=== PATIENT | female | born 1990 | race American Indian/Alaskan Native ===

== ENCOUNTER 2020-12-04 05:01 | Emergency (ER) | payer SELFPAY ==
[2020-12-04] MEDS ORDERED: FAMOTIDINE 20 MG TAB PO ONE (09:29)
[2020-12-04] MEDS ORDERED: ACETAMINOPHEN 325 MG TAB PO ONE (09:29)
--- NOTE | 2020-12-04 09:29 | Emergency Department Report ---
ED Abdominal Pain HPI - General Chief Complaint: Abdominal Pain Stated Complaint: ABD PAIN, NAUSEA PUI?: No Time Seen by Provider: 12/04/20 09:20 Source: patient, EMS Mode of arrival: Ambulatory Limitations: No Limitations - History of Present Illness Initial Comments: 30-year-old female presents to the ER via EMS with complaints of upper abdominal pain. Patient states that she has been having upper abdominal pain for 1 month. Patient states that she has been to the ER twice in the past month for same pain. Her visit here today makes the third time coming to the ER for the same pain. She states that she does not have insurance and therefore has not been able to follow-up with a primary care doctor nor her GI specialist. Patient states that when the pain flares up she gets anxious. She denies any nausea or vomiting. She states that she was told that one of her ER visit that she was constipated and was given MiraLAX which she took and after which she had few episodes of diarrhea but this has since resolved. She states that she has had an x-ray of her abdomen in the past, does not recall having a CT of her abdomen. She states that she has been taking Pepto-Bismol for pain which was helping, but she read on the bottle but she can only take it for 2 days. Patient denies any additional symptoms. She denies any abdominal surgeries. She denies alcohol abuse or any illicit drug use. Her last menstrual cycle was November 06, 2020. Complaint: abdominal pain -: month(s) (1) Severity scale (0 -10): 0 - Related Data Previous Rx's Medication Instructions Recorded Last Taken Type Famotidine [Pepcid] 20 mg PO BID #60 tablet 12/04/20 Unknown Rx Pantoprazole [Protonix] 40 mg PO QDAY #30 tablet 12/04/20 Unknown Rx Allergies Allergy/AdvReac Type Severity Reaction Status Date / Time No Known Allergies Allergy Verified 12/04/20 11:44 ED Review of Systems ROS: Stated complaint: ABD PAIN, NAUSEA Other details as noted in HPI Comment: All other systems reviewed and negative Constitutional: denies: chills, fever Eyes: denies: eye pain, eye discharge, vision change ENT: denies: ear pain, throat pain Respiratory: denies: cough, shortness of breath, SOB with exertion, SOB at rest, wheezing Cardiovascular: denies: chest pain, palpitations Gastrointestinal: abdominal pain. denies: nausea, vomiting, diarrhea, hematemesis, melena, hematochezia Genitourinary: denies: urgency, dysuria, frequency, hematuria, discharge, abnormal menses, dyspareunia Musculoskeletal: denies: back pain, joint swelling, arthralgia Skin: denies: rash, lesions Neurological: denies: headache, weakness, numbness, paresthesias, confusion, abnormal gait, vertigo Psychiatric: denies: anxiety, depression, auditory hallucinations, visual hallucinations, homicidal thoughts Hematological/Lymphatic: denies: easy bleeding, easy bruising ED Past Medical Hx - Past Medical History Previous Medical History?: No - Surgical History Past Surgical History?: No - Social History Smoking Status: Current Every Day Smoker Substance Use Type: None - Medications Home Medications: Home Medications Medication Instructions Recorded Confirmed Last Taken Type Famotidine [Pepcid] 20 mg PO BID #60 tablet 12/04/20 Unknown Rx Pantoprazole [Protonix] 40 mg PO QDAY #30 tablet 12/04/20 Unknown Rx ED Physical Exam - General Limitations: No Limitations General appearance: alert, in no apparent distress, other (Patient playing on her phone the entire time I was talking to her.) - Head Head exam: Present: atraumatic, normocephalic, normal inspection - Eye Eye exam: Present: normal appearance, PERRL, EOMI Pupils: Present: normal accommodation - Neck Neck exam: Present: normal inspection, full ROM - Respiratory Respiratory exam: Absent: respiratory distress - Cardiovascular Cardiovascular Exam: Present: regular rate - GI/Abdominal GI/Abdominal exam: Present: soft. Absent: distended, tenderness, guarding, rebound - Neurological Exam Neurological exam: Present: alert, oriented X3, CN II-XII intact, normal gait - Psychiatric Psychiatric exam: Present: normal affect, normal mood - Skin Skin exam: Present: intact ED Course Vital Signs 12/04/20 12/04/20 12/04/20 05:18 05:29 12:09 Temperature 99.2 F 99.1 F 98.4 F Pulse Rate 75 74 94 H Respiratory 18 16 14 Rate Blood Pressure 116/80 137/83 104/70 [Left] O2 Sat by Pulse 100 100 100 Oximetry ED Medical Decision Making - Lab Data Result diagrams: 12/04/20 09:52 12/04/20 09:52 - Medical Decision Making 30-year-old female presents to the ER via EMS with complaints of upper abdominal pain. Patient states that she has been having upper abdominal pain for 1 month. Patient states that she has been to the ER twice in the past month for same pain. Her visit here today makes the third time coming to the ER for the same pain. She states that she does not have insurance and therefore has not been able to follow-up with a primary care doctor nor her GI specialist. Patient states that when the pain flares up she gets anxious. She denies any nausea or vomiting. She states that she was told that one of her ER visit that she was constipated and was given MiraLAX which she took and after which she had few episodes of diarrhea but this has since resolved. She states that she has had an x-ray of her abdomen in the past, does not recall having a CT of her abdomen. She states that she has been taking Pepto-Bismol for pain which was helping, but she read on the bottle but she can only take it for 2 days. Patient denies any additional symptoms. She denies any abdominal surgeries. She denies alcohol abuse or any illicit drug use. Her last menstrual cycle was November 06, 2020. Labs reviewed and unremarkable. Patient currently laying in the bed, playing on her phone and she does not appear to be in any significant distress. She has a soft nontender abdomen. She is not toxic or ill-appearing. No vomiting or diarrhea during stay. At this time there is medication for any imaging/further testing, specialist consult or admission. Patient has been having this pain for a month, and she really needs to follow-up with GI. This is her third ER visit for the same issue that she has been having for the past month. Patient will be given referral to local primary care doctor's office as well as GI for follow-up. In the meantime she will be prescribed Pepcid and Protonix and to take Tylenol as needed for pain. Patient was stable at time of discharge. Critical care attestation.: If time is entered above; I have spent that time in minutes in the direct care of this critically ill patient, excluding procedure time. ED Disposition Clinical Impression: Upper abdominal pain Disposition: HOME / SELF CARE / HOMELESS Is pt being admited?: No Does the pt Need Aspirin: No Condition: Stable Instructions: Abdominal Pain, Adult, [id number], Abdominal Pain (ED) Additional Instructions: I recommend following up with primary care doctor and or GI specialist for you upper abdominal pain. Take the Pepcid and the Protonix as prescribed. You can take Tylenol as needed for pain. Return to the ER if your symptoms changes or worsens in any way. Prescriptions: Famotidine [Pepcid] 20 mg PO BID #60 tablet Pantoprazole [Protonix] 40 mg PO QDAY #30 tablet Referrals: PRIMARY CARE, [Primary Care Provider] - 3-5 Days [facility] [Provider Group] - 3-5 Days [facility] [Provider Group] - 3-5 Days Time of Disposition: 11:56 Print Language: BELGIAN
[2020-12-04 10:41] LABS: Basophils % (Auto) 0.2 % (0.0-1.8); Eosinophils % (Auto) 0.6 % (0.0-4.3); Hematocrit 33.5 % (30.3-42.9); Hemoglobin 11.1 gm/dl (10.1-14.3); Lymphocytes # (Auto) 3.1 K/mm3 (1.2-5.4); Lymphocytes % (Auto) 50.6 % (13.4-35.0); Mean Corpuscular HGB Conc 33 % (30-34); Monocytes # (Auto) 0.3 K/mm3 (0.0-0.8); Monocytes % (Auto) 4.8 % (0.0-7.3); Platelet Count 243 K/mm3 (140-440); Red Blood Count 2.55 M/mm3 (3.65-5.03); Red Cell Distribution Width 15.4 % (13.2-15.2)
[2020-12-04 11:07] LABS: Alanine Aminotransferase 12 units/L (7-56); Albumin 4.6 g/dL (3.9-5); BUN/Creatinine Ratio 35; Blood Urea Nitrogen 14 mg/dL (7-17); Calcium 9.1 mg/dL (8.4-10.2); Hemolysis Index 4
[2020-12-04 11:31] LABS: Mean Corpuscular Volume 131 fl (79-97)
[2020-12-04 11:47] LABS: HCG Qualitative,Urine Negative (Negative)
[2020-12-04] MEDS ORDERED: IBUPROFEN 600 MG TAB PO ONE (12:02)
[2020-12-04 12:10] VITALS: BP 104/70
== END 2020-12-04 12:10 | disposition home or self-care (01) ==
LOC: ED 05:01
DX: R10.10 Upper abdominal pain, unspecified (principal); F17.200 Nicotine dependence, unspecified, uncomplicated
CPT/HCPCS: 36415; 80053; 81025; 83690; 85025; 99283

== ENCOUNTER 2021-03-15 18:52 | Emergency (ER) | payer SELFPAY ==
--- NOTE | 2021-03-15 22:24 | Emergency Department Report ---
ED General Adult HPI - General Chief complaint: Neuro Symptoms/Deficit Stated complaint: EAR,STOMACH PAIN, NO BALANCE Time Seen by Provider: 03/15/21 21:25 Source: patient Mode of arrival: Ambulatory Limitations: Physical Limitation - History of Present Illness Initial comments: 30-year-old -Q[place] female patient presents with complaints of abd ominal pain and generalized weakness. Patient states her symptoms have been ongoing for about 1 year, however her abdominal pain began to worsen over the past few days. She denies any nausea/vomiting/diarrhea, melena/hematochezia, or fever/chills/sweats. She states she has been losing a great deal of weight despite having a normal appetite. No past medical history per patient. She states that she is having difficulty with ambulation and feels like her balance is off. No head injuries, headache, vision changes, or numbness/tingling in her limbs per patient. Patient states she has been seen at multiple ERs for the same symptoms and has not had any imaging performed as of yet. Patient also reports that she has not seen a primary care doctor or any specialist for her symptoms. - Related Data Previous Rx's Medication Instructions Recorded Last Taken Type Famotidine [Pepcid] 20 mg PO BID #60 tablet 12/04/20 Unknown Rx Pantoprazole [Protonix] 40 mg PO QDAY #30 tablet 12/04/20 Unknown Rx predniSONE [Deltasone] 20 mg PO BID 3 Days #6 tab 03/16/21 Unknown Rx Allergies Allergy/AdvReac Type Severity Reaction Status Date / Time No Known Allergies Allergy Verified 12/04/20 11:44 ED Review of Systems ROS: Stated complaint: EAR,STOMACH PAIN, NO BALANCE Other details as noted in HPI Constitutional: weakness. denies: chills, diaphoresis, fever, malaise Respiratory: denies: cough, shortness of breath Cardiovascular: denies: chest pain Gastrointestinal: abdominal pain, other (Blood on tissue with wiping intermittently). denies: nausea, vomiting, diarrhea, constipation, hematochezia Genitourinary: denies: urgency, dysuria, frequency, hematuria, discharge, abnormal menses Musculoskeletal: denies: joint swelling Skin: denies: rash, lesions, change in color Neurological: weakness, abnormal gait. denies: headache, numbness, paresthesias ED Past Medical Hx - Past Medical History Previous Medical History?: No - Surgical History Past Surgical History?: No - Social History Smoking Status: Current Every Day Smoker Substance Use Type: None - Medications Home Medications: Home Medications Medication Instructions Recorded Confirmed Last Taken Type Famotidine [Pepcid] 20 mg PO BID #60 tablet 12/04/20 Unknown Rx Pantoprazole [Protonix] 40 mg PO QDAY #30 tablet 12/04/20 Unknown Rx predniSONE [Deltasone] 20 mg PO BID 3 Days #6 tab 03/16/21 Unknown Rx ED Physical Exam - General Limitations: Physical Limitation General appearance: alert, in no apparent distress - Head Head exam: Present: atraumatic, normocephalic - Eye Eye exam: Present: normal appearance, PERRL. Absent: scleral icterus - Neck Neck exam: Present: normal inspection - Respiratory Respiratory exam: Present: normal lung sounds bilaterally. Absent: respiratory distress - Cardiovascular Cardiovascular Exam: Present: regular rate, normal rhythm. Absent: systolic m urmur, diastolic murmur, rubs, gallop - GI/Abdominal GI/Abdominal exam: Present: soft, tenderness (Mid upper abdomen), normal bowel sounds. Absent: distended, guarding, rebound, rigid - Back Exam Back exam: Present: normal inspection - Neurological Exam Neurological exam: Present: alert, oriented X3, CN II-XII intact. Absent: normal gait (Unbalanced; patient unable to walk for more than 8 steps without having to sit down again) - Expanded Neurological Exam Expanded Speech: Present: fluid speech Cerebellar function: Finger to Nose: Normal, Romberg: Normal Sensory exam: Upper Extremity Light Touch: Normal, Lower Extremity Light Touch: Normal Motor strength exam: RUE: 3, LUE: 3, RLE: 3, LLE: 3 Best Eye Response (Anabel): (4) open spontaneously Best Motor Response (Anabel): (6) obeys commands Best Verbal Response (Anabel): (5) oriented Phillip Total: 15 - Psychiatric Psychiatric exam: Present: normal affect, normal mood - Skin Skin exam: Present: warm, dry, intact, normal color. Absent: rash ED Course Vital Signs 03/15/21 20:56 Temperature 98.6 F Pulse Rate 96 H Respiratory 18 Rate Blood Pressure 94/52 O2 Sat by Pulse 100 Oximetry ED Medical Decision Making - Lab Data Result diagrams: 03/15/21 22:54 03/15/21 22:54 Lab Results 03/15/21 03/15/21 03/15/21 Range/Units 22:54 22:54 22:54 WBC 3.3 L (4.5-11.0) K/mm3 RBC 2.21 L (3.65-5.03) M/mm3 Hgb 8.1 L (10.1-14.3) gm/dl Hct 24.3 L (30.3-42.9) % MCV 110 H (79-97) fl MCH 37 H (28-32) pg MCHC 33 (30-34) % RDW 32.9 H (13.2-15.2) % Plt Count 144 (140-440) K/mm3 Lymph % (Auto) Firer Locomotive Crane Add Manual Diff Complete Total Counted 100 Seg Neuts % (Manual) 35.0 L (40.0-70.0) % Band Neutrophils % 0 % Lymphocytes % (Manual) 65.0 H (13.4-35.0) % Reactive Lymphs % (Man) 0 % Monocytes % (Manual) 0 (0.0-7.3) % Eosinophils % (Manual) 0 (0.0-4.3) % Basophils % (Manual) 0 (0.0-1.8) % Metamyelocytes % 0 % Myelocytes % 0 % Promyelocytes % 0 % Blast Cells % 0 % Nucleated RBC % Not Reportable Seg Neutrophils # Man 1.2 L (1.8-7.7) K/mm3 Band Neutrophils # 0.0 K/mm3 Lymphocytes # (Manual) 2.1 (1.2-5.4) K/mm3 Abs React Lymphs (Man) 0.0 K/mm3 Monocytes # (Manual) 0.0 (0.0-0.8) K/mm3 Eosinophils # (Manual) 0.0 (0.0-0.4) K/mm3 Basophils # (Manual) 0.0 (0.0-0.1) K/mm3 Metamyelocytes # 0.0 K/mm3 Myelocytes # 0.0 K/mm3 Promyelocytes # 0.0 K/mm3 Blast Cells # 0.0 K/mm3 WBC Morphology Not Reportable Hypersegmented Neuts Not Reportable Hyposegmented Neuts Not Reportable Hypogranular Neuts Not Reportable Smudge Cells Not Reportable Toxic Granulation Not Reportable Toxic Vacuolation Not Reportable Dohle Bodies Not Reportable Pelger-Huet Anomaly Not Reportable Celestine Rods Not Reportable Platelet Estimate Consistent w auto Clumped Platelets Not Reportable Plt Clumps, EDTA Not Reportable Large Platelets Not Reportable Giant Platelets Not Reportable Platelet Satelliting Not Reportable Plt Morphology Comment Not Reportable RBC Morphology Not Reportable Dimorphic RBCs Not Reportable Polychromasia Not Reportable Hypochromasia Not Reportable Poikilocytosis Not Reportable Anisocytosis 3+ Microcytosis Not Reportable Macrocytosis 1+ Spherocytes Not Reportable Pappenheimer Bodies Not Reportable Sickle Cells Not Reportable Target Cells Not Reportable Tear Drop Cells Few Ovalocytes Few Helmet Cells Not Reportable Mireles-[place] Bodies Not Reportable [place] Rings Not Reportable Nixon Cells Not Reportable Bite Cells Not Reportable Crenated Cell Not Reportable Elliptocytes Not Reportable Acanthocytes (Spur) Not Reportable Rouleaux Not Reportable Hemoglobin C Crystals Not Reportable Schistocytes Few Malaria parasites Not Reportable Kilo Bodies Not Reportable Hem Pathologist Commnt No Sodium 139 (137-145) mmol/L Potassium 3.9 (3.6-5.0) mmol/L Chloride 103.9 (98-107) mmol/L Carbon Dioxide 21 L (22-30) mmol/L Anion Gap 18 mmol/L BUN 19 H (7-17) mg/dL Creatinine 0.4 L (0.6-1.2) mg/dL Estimated GFR > 60 ml/min BUN/Creatinine Ratio 48 % Glucose 94 (65-100) mg/dL Calcium 9.3 (8.4-10.2) mg/dL Total Bilirubin 1.90 H (0.1-1.2) mg/dL AST 29 (5-40) units/L ALT 27 (7-56) units/L Alkaline Phosphatase 38 (35-129) units/L Total Protein 7.9 (6.3-8.2) g/dL Albumin 4.8 (3.9-5) g/dL Albumin/Globulin Ratio 1.5 % Lipase 46 (13-60) units/L HCG, Qual Negative (Negative) - Radiology Data Radiology results: report reviewed CT ABDOMEN AND PELVIS WITH CONTRAST HISTORY: Pt complains of "Generalized" abdominal pain. COMPARISON: None. TECHNIQUE: CT images of the abdomen and pelvis were obtained following administration of intravenous contrast. All CT scans at this location are performed using CT dose reduction for ALARA by means of automated exposure control. CONTRAST: 100 ml of intravenous contrast administered. FINDINGS: Lungs/bones: Lung bases are clear Abdomen/pelvis: The liver, spleen, adrenal glands, pancreas, gallbladder and upper GI tract appears normal. Kidneys appear normal. No hydronephrosis. Appendix appears normal. No focal inflammatory change in the bowel loops. Small periaortic nodes are seen throughout the abdomen with nodes measuring up to 6 to 7 mm in short axis. No bowel obstruction is seen. Uterus is heterogeneous. Urinary bladder appears normal. Portal vein is patent. IMPRESSION: 1. No acute findings are definitely seen. Few mildly prominent periaortic nod es, nonspecific. CT HEAD WITHOUT CONTRAST INDICATION / CLINICAL INFORMATION: Pt complains of weakness. TECHNIQUE: All CT scans at this location are performed using CT dose reduction for ALARA by means of automated exposure control. COMPARISON: None available. FINDINGS: No acute intracranial hemorrhage. Ventricles are normal in size without midline shift mass effect. Right maxillary sinus disease. There is some subtle areas of low-attenuation in the white matter however nonspecific. ADDITIONAL FINDINGS: None. IMPRESSION: 1. No acute intracranial hemorrhage. Given patient's symptoms if there is concern for acute ischemic change MRI with diffusion is recommended. Nonspecific white matter change in the periventricular and central white matter. - Medical Decision Making 30-year-old -[place] female patient presents with complaints of abdominal pain and generalized weakness. Patient states her symptoms have been ongoing for about 1 year, however her abdominal pain began to worsen over the past few days. She denies any nausea/vomiting/diarrhea, melena/hematochezia, or fever/chills/sweats. She states she has been losing a great deal of weight despite having a normal appetite. No past medical history per patient. She states that she is having difficulty with ambulation and feels like her balance is off. No head injuries, headache, vision changes, or numbness/tingling in her limbs per patient. Patient states she has been seen at multiple ERs for the same symptoms and has not had any imaging performed as of yet. Patient also reports that she has not seen a primary care doctor or any specialist for her symptoms. CT abdomen shows periaortic nodes without other acute abnormalities. CT head shows nonspecific white matter changes. Given chronicity of patient's symptoms, she is stable for follow-up outpatient with neurology. Stressed importance of further examination and likely need of MRI. CBC shows anemia and low white blood cell count. Referrals given. Discussed in detail signs and symptoms that should prompt immediate return to the ED with patient verbalized understanding. Critical care attestation.: If time is entered above; I have spent that time in minutes in the direct care of this critically ill patient, excluding procedure time. ED Disposition Clinical Impression: Generalized weakness, Abnormal gait, Chronic abdominal pain Disposition: 01 HOME / SELF CARE / HOMELESS Is pt being admited?: No Condition: Stable Instructions: Weakness, [id number], Ataxia Prescriptions: predniSONE [Deltasone] 20 mg PO BID 3 Days #6 tab Referrals: [facility] [Provider Group] - 3-5 Days [facility] [Provider Group] - 3-5 Days [facility] [Outside] - 3-5 Days
[2021-03-15] MEDS ORDERED: HYDROcodone/ACETAMINOPHEN 5-325 MG TAB PO ONE (23:04)
[2021-03-15 23:25] LABS: Hematocrit 24.3 % (30.3-42.9); Hemoglobin 8.1 gm/dl (10.1-14.3); Mean Corpuscular HGB Conc 33 % (30-34); Platelet Count 144 K/mm3 (140-440); Red Blood Count 2.21 M/mm3 (3.65-5.03)
[2021-03-15 23:34] LABS: Mean Corpuscular Volume 110 fl (79-97); Red Cell Distribution Width 32.9 % (13.2-15.2)
[2021-03-15 23:47] LABS: Alanine Aminotransferase 27 units/L (7-56); Albumin 4.8 g/dL (3.9-5); Blood Urea Nitrogen 19 mg/dL (7-17); Calcium 9.3 mg/dL (8.4-10.2); Hemolysis Index 6
[2021-03-15 23:54] LABS: BUN/Creatinine Ratio 48
[2021-03-16 00:54] LABS: Anisocytosis 3+; Basophils % (Manual) 0 % (0.0-1.8); Eosinophils % (Manual) 0 % (0.0-4.3); Macrocytosis 1+; Monocytes % (Manual) 0 % (0.0-7.3); Total Cells Counted 100
[2021-03-16 00:56] LABS: Ovalocytes Few; Schistocytes Few; Tear Drop Cells Few
[2021-03-16 00:57] LABS: Platelet Estimate Consistent w Auto
--- NOTE | 2021-03-16 00:57 | Cat Scan Report ---
CT HEAD WITHOUT CONTRAST INDICATION / CLINICAL INFORMATION: Pt complains of weakness. TECHNIQUE: All CT scans at this location are performed using CT dose reduction for ALARA by means of automated e xposure control. COMPARISON: None available. FINDINGS: No acute intracranial hemorrhage. Ventricles are normal in size without midline shift mass effect. Ri ght maxillary sinus disease. There is some subtle areas of low-attenuation in the white matter howeve r nonspecific. ADDITIONAL FINDINGS: None. IMPRESSION: 1. No acute intracranial hemorrhage. Given patient's symptoms if there is concern for acute ischemic change MRI with diffusion is recommended. Nonspecific white matter change in the periventricular and central white matter. Signer Name: Desean Holden MD Signed: 03/16/2021 12:53 AM Workstation Name: [id number]
--- NOTE | 2021-03-16 00:59 | Cat Scan Report ---
CT ABDOMEN AND PELVIS WITH CONTRAST HISTORY: Pt complains of "Generalized" abdominal pain. COMPARISON: None. TECHNIQUE: CT images of the abdomen and pelvis were obtained following administration of intravenous contrast. All CT scans at this location are performed using CT dose reduction for ALARA by means of automated exposure control. CONTRAST: 100 ml of intravenous contrast administered. FINDINGS: Lungs/bones: Lung bases are clear Abdomen/pelvis: The liver, spleen, adrenal glands, pancreas, gallbladder and upper GI tract appears normal. Kidneys appear normal. No hydronephrosis. Appendix appears normal. No focal inflammatory hubbard ge in the bowel loops. Small periaortic nodes are seen throughout the abdomen with nodes measuring up to 6 to 7 mm in short axis. No bowel obstruction is seen. Uterus is heterogeneous. Urinary bladder a ppears normal. Portal vein is patent. IMPRESSION: 1. No acute findings are definitely seen. Few mildly prominent periaortic nodes, nonspecific. Signer Name: Desean Holden MD Signed: 03/16/2021 12:55 AM Workstation Name: [id number]
[2021-03-16] MEDS ORDERED: dexAMETHasone 20 MG/5 ML VIAL IV ONE (01:35)
[2021-03-16 03:03] VITALS: BP 92/59
== END 2021-03-16 03:04 | disposition home or self-care (01) ==
LOC: ED 18:52
DX: R10.9 Unspecified abdominal pain (principal); R26.9 Unspecified abnormalities of gait and mobility; R53.1 Weakness; F17.200 Nicotine dependence, unspecified, uncomplicated
CPT/HCPCS: 36415; 70450; 74177; 80053; 83690; 84703; 85007; 85025; 96374; 99284; J1100; Q9967

== ENCOUNTER 2021-05-05 06:53 | Inpatient (IN) | payer SELFPAY ==
[2021-05-05] MEDS ORDERED: SODIUM CHLORIDE 0.9% 1000 ML 1,000 ML IV ONE (07:40)
[2021-05-05 09:03] LABS: INR 1.27 (0.87-1.13)
[2021-05-05 09:10] LABS: Albumin 4.2 g/dL (3.9-5); Calcium 9.1 mg/dL (8.4-10.2)
[2021-05-05] MEDS ORDERED: ALBUTEROL 2.5 MG/3 ML NEBU IH ONE (09:17)
[2021-05-05] MEDS ORDERED: CALCIUM GLUCONATE 1,000 MG in SODIUM CHLORIDE 0.9% 100 ML IV ONE (09:18)
[2021-05-05] MEDS ORDERED: DEXTROSE 50% IN WATER (25GM) 50 ML VIAL IV ONE (09:18)
[2021-05-05] MEDS ORDERED: SODIUM POLYSTYRENE 15 GM/60 ML ORAL LIQD PO ONE (09:18)
[2021-05-05] MEDS ORDERED: INSULIN REGULAR, HUMAN 100 UNITS/1 ML IV ONE (09:18)
[2021-05-05 09:19] LABS: Hemoglobin 7.3 gm/dl (10.1-14.3); Mean Corpuscular HGB Conc 32 % (30-34); Platelet Count 545 K/mm3 (140-440)
[2021-05-05 09:21] LABS: Mean Corpuscular Volume 121 fl (79-97); Red Cell Distribution Width 20.8 % (13.2-15.2)
[2021-05-05] MEDS ORDERED: DEXTROSE 10% *Hypoglycemia IV PRN (09:23)
[2021-05-05 09:35] LABS: Chol/HDL Ratio 2.97 %
--- NOTE | 2021-05-05 09:42 | Emergency Department Report ---
ED General Adult HPI - General Chief complaint: Extremity Problem,Nontraumatic Stated complaint: SWOLLEN FEET/BACK PAIN Time Seen by Provider: 05/05/21 07:35 Source: patient, EMS Mode of arrival: Stretcher Limitations: No Limitations - History of Present Illness Initial comments: PT ARRIVING FROM HOME- C/O SWOLLEN FEET/BACK PAIN. NONAMBULATORY, INCONTINENT X5 MONTHS. pt was seen multiple times in different ER for the same problem, but never folowed up OP due to insurance problems , denies chets pain or fever -: Gradual, month(s) Location: pelvis Severity scale (0 -10): 0 Worsens with: none Associated Symptoms: loss of appetite, malaise, weakness. denies: denies other symptoms - Related Data Previous Rx's Medication Instructions Recorded Last Taken Type Famotidine [Pepcid] 20 mg PO BID #60 tablet 12/04/20 Unknown Rx Pantoprazole [Protonix] 40 mg PO QDAY #30 tablet 12/04/20 Unknown Rx predniSONE [Deltasone] 20 mg PO BID 3 Days #6 tab 03/16/21 Unknown Rx Allergies Allergy/AdvReac Type Severity Reaction Status Date / Time No Known Allergies Allergy Verified 05/05/21 06:57 ED Review of Systems ROS: Stated complaint: SWOLLEN FEET/BACK PAIN Other details as noted in HPI Comment: All other systems reviewed and negative ED Past Medical Hx - Past Medical History Previous Medical History?: No - Social History Smoking Status: Current Every Day Smoker Substance Use Type: None - Medications Home Medications: Home Medications Medication Instructions Recorded Confirmed Last Taken Type Famotidine [Pepcid] 20 mg PO BID #60 tablet 12/04/20 Unknown Rx Pantoprazole [Protonix] 40 mg PO QDAY #30 tablet 12/04/20 Unknown Rx predniSONE [Deltasone] 20 mg PO BID 3 Days #6 tab 03/16/21 Unknown Rx ED Physical Exam - General Limitations: No Limitations General appearance: alert, in distress, cachectic - Head Head exam: Present: atraumatic, normocephalic - Eye Eye exam: Present: normal appearance - ENT ENT exam: Present: mucous membranes dry - Neck Neck exam: Present: normal inspection - Respiratory Respiratory exam: Present: rales. Absent: respiratory distress - Cardiovascular Cardiovascular Exam: Present: regular rate, normal rhythm. Absent: systolic murmur, diastolic murmur, rubs, gallop - GI/Abdominal GI/Abdominal exam: Present: soft, normal bowel sounds - Extremities Exam Extremities exam: Present: pedal edema - Back Exam Back exam: Present: normal inspection - Neurological Exam Neurological exam: Present: alert, oriented X3 - Psychiatric Psychiatric exam: Present: normal affect, normal mood - Skin Skin exam: Present: warm, dry, intact, normal color. Absent: rash ED Course Vital Signs 05/05/21 05/05/21 05/05/21 06:54 07:37 07:41 Temperature 98 F Pulse Rate 86 105 H 100 H Respiratory 20 14 17 Rate Blood Pressure 135/87 Blood Pressure 130/80 135/87 [Left] O2 Sat by Pulse 98 100 100 Oximetry 05/05/21 05/05/21 07:45 08:01 Temperature Pulse Rate 103 H 104 H Respiratory 14 14 Rate Blood Pressure 135/87 130/92 Blood Pressure [Left] O2 Sat by Pulse 100 81 L Oximetry ED Medical Decision Making - Lab Data Result diagrams: 05/05/21 07:44 05/05/21 07:44 - EKG Data -: EKG Interpreted by Me EKG shows normal: sinus rhythm Rate: normal - EKG Data When compared to previous EKG there are: no significant change Interpretation: no acute changes - Medical Decision Making work up showed hyperkalemia , ARF spoke clementina warner, he will see her shortly , will start hyperkalemia protocol and admit to ICU Critical Care Time: Yes Critical care time in (mins) excluding proc time.: 55 Critical care attestation.: If time is entered above; I have spent that time in minutes in the direct care of this critically ill patient, excluding procedure time. Critical Care Time: 65 ED Disposition Clinical Impression: Weakness, Incontinence, ARF (acute renal failure), Hyperkalemia, Acidosis, Anemia Disposition: ADMITTED INPATIENT Is pt being admited?: Yes Does the pt Need Aspirin: No Condition: Critical Referrals: PRIMARY CARE, [Primary Care Provider] - 3-5 Days
[2021-05-05 09:54] LABS: Anisocytosis 1+; Basophils % (Manual) 0 % (0.0-1.8); Macrocytosis 2+; Total Cells Counted 100
[2021-05-05 09:55] LABS: Platelet Estimate Consistent w Auto; Toxic Granulation 3+
[2021-05-05] MEDS ORDERED: SODIUM BICARBONATE 50 MEQ in SODIUM CHLORIDE 0.9% 1000 ML 1,000 ML IV SCH (10:00)
[2021-05-05] MEDS ORDERED: CALC GLUCONATE 1GM/NS 100 ML 1 GM/100 ML BAG IV NR (10:00)
[2021-05-05] MEDS ORDERED: DEXTROSE 50% IN WATER (25GM) 50 ML SYRINGE IV ONE (10:02)
[2021-05-05] MEDS ORDERED: LIP THERAPY VASELINE TP PRN (10:21)
[2021-05-05] MEDS ORDERED: MORPHINE 4 MG/1 ML INJ IV PRN (10:59)
[2021-05-05] MEDS ORDERED: SODIUM CHLORIDE 0.9% 1000 ML 1,000 ML IV SCH (11:00)
--- NOTE | 2021-05-05 11:12 | Consultation ---
History of Present Illness - Reason for Consult Consult date: 05/05/21 acute renal failure, hyperkalemia, metabolic acidosis - History of Present Illness The patient is a 30 YO female with history notable for bedbound status and double incontinence who presented to [facility] ED 05/05 with c/o bilateral lower extremity swelling, abdominal discomfort, back pain and generalized weakness for the past several months. Most of the history provided by mother and sister at the bedside. Per mother patient developed weakness several months ago which gotten progressively worse, now patient cant move her legs and bedbound for the past 3 months. Patient also incontinent of urine and stool. Patient also reportedly has poor urine output for the past few days. Also patient has not been eating or drinking well for few weeks now. Patient has had multiple ER visits at various hospitals including a previous ER visit here with similar complaints back in February with CT scan of the abdomen and pelvis that was found to be negative. Patient is also had ER visits at [facility] and [facility] with similar complaints. No reports of any hospitalization. Her last creatinine reported here on her ER visit in February was 0.4. Patient also c/o some sob. Denies N, V, D, fever, chills, rash, dizziness, syncope, cp, hematuria or blurry vision. Labs notable for Cr eat 10.3, BUN 155, Sodium 126, K 6.9, bicarb 12, Hb 7.3 and Ck 329. Imaging reviewed. Nephrology was consulted for further evaluation of MAT, hyperkalemia and metabolic acidosis. Medications and Allergies Allergies Allergy/AdvReac Type Severity Reaction Status Date / Time No Known Allergies Allergy Verified 05/05/21 06:57 Home Medications Medication Instructions Recorded Confirmed Last Taken Type Famotidine [Pepcid] 20 mg PO BID #60 tablet 12/04/20 05/05/21 Unknown Rx Pantoprazole [Protonix] 40 mg PO QDAY #30 tablet 12/04/20 05/05/21 Unknown Rx predniSONE [Deltasone] 20 mg PO BID 3 Days #6 tab 03/16/21 05/05/21 Unknown Rx Active Meds: Active Medications Acetaminophen (Acetaminophen 325 Mg Tab) 650 mg PO Q4H PRN PRN Reason: Pain MILD(1-3)/Fever >100.5/GILLETTE Dextrose (Dextrose 10% *Hypoglycemia) 0 ml IV PRN PRN PRN Reason: Hypoglycemia Heparin Sodium (Porcine) (Heparin 5,000 Unit/1 Ml Vial) 5,000 unit SUB-Q Q12HR [facility] Sodium Bicarbonate 50 meq/ (Sodium Chloride) 1,050 mls @ 100 mls/hr IV DIRECT [facility] Last Admin: 05/05/21 10:13 Dose: 100 mls/hr Morphine Sulfate (Morphine 4 Mg/1 Ml Inj) 1 mg IV Q4H PRN PRN Reason: Pain , Severe (7-10) Ondansetron HCl (Ondansetron 4 Mg/2 Ml Inj) 4 mg IV Q8H PRN PRN Reason: Nausea And Vomiting Oxycodone/Acetaminophen (Oxycodone /Acetaminophen 5-325mg Tab) 1 tab PO Q6H PRN PRN Reason: Pain, Moderate (4-6) Sodium Chloride (Sodium Chloride 0.9% 10 Ml Flush Syringe) 10 ml IV BID [facility] Sodium Chloride (Sodium Chloride 0.9% 10 Ml Flush Syringe) 10 ml IV PRN PRN PRN Reason: LINE FLUSH Review of Systems ROS unobtainable: due to mental status All systems: negative Exam - Vital Signs Vital signs: Vital Signs Temp Pulse Resp BP Pulse Ox 98 F 86 20 130/80 98 05/05/21 06:54 05/05/21 06:54 05/05/21 06:54 05/05/21 06:54 05/05/21 06:54 Results - Lab Results 05/05/21 07:44 05/05/21 16:07 Most recent lab results Calcium 9.1 mg/dL (8.4-10.2) 05/05/21 07:44 Assessment and Plan 1. Acute kidney injury: MAT in the setting of bladder obstruction and volume depletion. Renal US finding noted. Urine studies ordered. Continue IV fluids. Monitor renal function. Renal prognosis is guarded. Avoid nephrotoxic agents. Meds dosage based on GFR. Monitor for INSURANCE OFFICE MANAGER needs. Patient and family was explained that she may need dialysis. 2. FEN: Hyperkalemia, meds ordered, monitor. Anion-gap Metabolic acidosis, 2/2 MAT, bicarb drip, monitor. Hyponatremia, monitor. Monitor lytes and volume status. 3. LE weakness: Functional paraplegia. MRI lumbar spine. Monitor. 4. Macrocytic anemia, POA: Monitor. 5. Anorexia. Subjective: Patient was seen and examined at the bedside. Examination: General appearance: well-developed, appears stated age, no distress HEENT: atraumatic, MARY Neck: trachea midline Respiratory: ctab Heart: S1S2, regular, no murmur Abdomen: soft, bowel sounds heard, distended bladder noted Integumentary: no obvious rash Neurologic: somnolent, able to move UE, not able to move LEs Ext: no edema
--- NOTE | 2021-05-05 11:26 | History and Physical Report ---
History of Present Illness Date of examination: 05/05/21 Date of admission: 05/05/2021 Chief complaint: Generalized weakness, lower extremity swelling History of present illness: This is a 30-year-old female who presents to the emergency department with complaints of bilateral lower extremity swelling, vague abdominal and back pain and generalized weakness. Patient also reportedly has had poor urine output. Patient is accompanied by her mother who is at the bedside. She reportedly has been incontinent for 5 months. Patient has had multiple ER visits at various hospitals including a previous ER visit here with similar complaints back in February with CT scan of the abdomen and pelvis that was found to be negative. Patient is also had ER visits at [facility] and [place] with similar complaints. No reports of any hospitalization her last creatinine reported here on her ER visit in February was 0.4. Patient denies any chest pain but does complain of some mild shortness of breath. Patient is somewhat somnolent and lethargic throughout the interview. All the history was essentially obtain from the mother. Past History Past Medical History: No medical history Past Surgical History: No surgical history Social history: no significant social history Family history: no significant family history Medications and Allergies Allergies Allergy/AdvReac Type Severity Reaction Status Date / Time No Known Allergies Allergy Verified 05/05/21 06:57 Home Medications Medication Instructions Recorded Confirmed Last Taken Type Famotidine [Pepcid] 20 mg PO BID #60 tablet 12/04/20 Unknown Rx Pantoprazole [Protonix] 40 mg PO QDAY #30 tablet 12/04/20 Unknown Rx predniSONE [Deltasone] 20 mg PO BID 3 Days #6 tab 03/16/21 Unknown Rx Active Meds: Active Medications Acetaminophen (Acetaminophen 325 Mg Tab) 650 mg PO Q4H PRN PRN Reason: Pain MILD(1-3)/Fever >100.5/GILLETTE Dextrose (Dextrose 10% *Hypoglycemia) 0 ml IV PRN PRN PRN Reason: Hypoglycemia Heparin Sodium (Porcine) (Heparin 5,000 Unit/1 Ml Vial) 5,000 unit SUB-Q Q12HR [facility] Sodium Bicarbonate 50 meq/ (Sodium Chloride) 1,050 mls @ 100 mls/hr IV DIRECT [facility] Last Admin: 05/05/21 10:13 Dose: 100 mls/hr Morphine Sulfate (Morphine 2 Mg/1 Ml Inj) 1 mg IV Q4H PRN PRN Reason: Pain , Severe (7-10) Ondansetron HCl (Ondansetron 4 Mg/2 Ml Inj) 4 mg IV Q8H PRN PRN Reason: Nausea And Vomiting Oxycodone/Acetaminophen (Oxycodone /Acetaminophen 5-325mg Tab) 1 tab PO Q6H PRN PRN Reason: Pain, Moderate (4-6) Sodium Chloride (Sodium Chloride 0.9% 10 Ml Flush Syringe) 10 ml IV BID [facility] Sodium Chloride (Sodium Chloride 0.9% 10 Ml Flush Syringe) 10 ml IV PRN PRN PRN Reason: LINE FLUSH Review of Systems All systems: negative Exam - Constitutional Vitals: Temp Pulse Resp BP Pulse Ox 98 F 99 H 16 130/92 93 05/05/21 06:54 05/05/21 09:35 05/05/21 09:35 05/05/21 08:01 05/05/21 09:42 General appearance: Present: no acute distress, well-nourished - EENT Eyes: Present: PERRL ENT: hearing intact, clear oral mucosa - Neck Neck: Present: supple, normal ROM - Respiratory Respiratory effort: normal Respiratory: bilateral: CTA - Cardiovascular Heart Sounds: Present: S1 & S2. Absent: rub, click - Extremities Extremities: pulses symmetrical, No edema Peripheral Pulses: within normal limits - Abdominal General gastrointestinal: Present: soft, non-tender, non-distended, normal bowel sounds Female genitourinary: Present: normal - Integumentary Integumentary: Present: clear, warm, dry - Musculoskeletal Musculoskeletal: gait normal, strength equal bilaterally - Psychiatric Psychiatric: appropriate mood/affect, intact judgment & insight - Neurologic Neurologic: CNII-XII intact, moves all extremities HEART Score - HEART Score Troponin: Troponin T 0.038 ng/mL (0.00-0.029) H 05/05/21 07:44 Results - Labs CBC & Chem 7: 05/05/21 07:44 05/05/21 07:44 Labs: Laboratory Last Values WBC 11.4 K/mm3 (4.5-11.0) H 05/05/21 07:44 RBC 1.90 M/mm3 (3.65-5.03) L 05/05/21 07:44 Hgb 7.3 gm/dl (10.1-14.3) L 05/05/21 07:44 Hct 23.0 % (30.3-42.9) L 05/05/21 07:44 MCV 121 fl (79-97) H 05/05/21 07:44 MCH 38 pg (28-32) H 05/05/21 07:44 MCHC 32 % (30-34) 05/05/21 07:44 RDW 20.8 % (13.2-15.2) H 05/05/21 07:44 Plt Count 545 K/mm3 (140-440) H 05/05/21 07:44 Add Manual Diff Complete 05/05/21 07:44 Total Counted 100 05/05/21 07:44 Seg Neuts % (Manual) 77.0 % (40.0-70.0) H 05/05/21 07:44 Band Neutrophils % 0 % 05/05/21 07:44 Lymphocytes % (Manual) 16.0 % (13.4-35.0) 05/05/21 07:44 Reactive Lymphs % (Man) 0 % 05/05/21 07:44 Monocytes % (Manual) 6.0 % (0.0-7.3) 05/05/21 07:44 Eosinophils % (Manual) 1.0 % (0.0-4.3) 05/05/21 07:44 Basophils % (Manual) 0 % (0.0-1.8) 05/05/21 07:44 Metamyelocytes % 0 % 05/05/21 07:44 Myelocytes % 0 % 05/05/21 07:44 Promyelocytes % 0 % 05/05/21 07:44 Blast Cells % 0 % 05/05/21 07:44 Nucleated RBC % Not Reportable 05/05/21 07:44 Seg Neutrophils # Man 8.8 K/mm3 (1.8-7.7) H 05/05/21 07:44 Band Neutrophils # 0.0 K/mm3 05/05/21 07:44 Lymphocytes # (Manual) 1.8 K/mm3 (1.2-5.4) 05/05/21 07:44 Abs React Lymphs (Man) 0.0 K/mm3 05/05/21 07:44 Monocytes # (Manual) 0.7 K/mm3 (0.0-0.8) 05/05/21 07:44 Eosinophils # (Manual) 0.1 K/mm3 (0.0-0.4) 05/05/21 07:44 Basophils # (Manual) 0.0 K/mm3 (0.0-0.1) 05/05/21 07:44 Metamyelocytes # 0.0 K/mm3 05/05/21 07:44 Myelocytes # 0.0 K/mm3 05/05/21 07:44 Promyelocytes # 0.0 K/mm3 05/05/21 07:44 Blast Cells # 0.0 K/mm3 05/05/21 07:44 WBC Morphology Not Reportable 05/05/21 07:44 Hypersegmented Neuts Not Reportable 05/05/21 07:44 Hyposegmented Neuts Not Reportable 05/05/21 07:44 Hypogranular Neuts Not Reportable 05/05/21 07:44 Smudge Cells Not Reportable 05/05/21 07:44 Toxic Granulation 3+ 05/05/21 07:44 Toxic Vacuolation Not Reportable 05/05/21 07:44 Dohle Bodies Not Reportable 05/05/21 07:44 Pelger-Huet Anomaly Not Reportable 05/05/21 07:44 Celestine Rods Not Reportable 05/05/21 07:44 Platelet Estimate Consistent w auto 05/05/21 07:44 Clumped Platelets Not Reportable 05/05/21 07:44 Plt Clumps, EDTA Not Reportable 05/05/21 07:44 Large Platelets Not Reportable 05/05/21 07:44 Giant Platelets Not Reportable 05/05/21 07:44 Platelet Satelliting Not Reportable 05/05/21 07:44 Plt Morphology Comment Not Reportable 05/05/21 07:44 RBC Morphology Not Reportable 05/05/21 07:44 Dimorphic RBCs Not Reportable 05/05/21 07:44 Polychromasia Not Reportable 05/05/21 07:44 Hypochromasia Not Reportable 05/05/21 07:44 Poikilocytosis Not Reportable 05/05/21 07:44 Anisocytosis 1+ 05/05/21 07:44 Microcytosis Not Reportable 05/05/21 07:44 Macrocytosis 2+ 05/05/21 07:44 Spherocytes Not Reportable 05/05/21 07:44 Pappenheimer Bodies Not Reportable 05/05/21 07:44 Sickle Cells Not Reportable 05/05/21 07:44 Target Cells Not Reportable 05/05/21 07:44 Tear Drop Cells Not Reportable 05/05/21 07:44 Ovalocytes Not Reportable 05/05/21 07:44 Helmet Cells Not Reportable 05/05/21 07:44 Mireles-Rosman Bodies Not Reportable 05/05/21 07:44 Burns Rings Not Reportable 05/05/21 07:44 Moy Cells Not Reportable 05/05/21 07:44 Bite Cells Not Reportable 05/05/21 07:44 Crenated Cell Not Reportable 05/05/21 07:44 Elliptocytes Not Reportable 05/05/21 07:44 Acanthocytes (Spur) Not Reportable 05/05/21 07:44 Rouleaux Not Reportable 05/05/21 07:44 Hemoglobin C Crystals Not Reportable 05/05/21 07:44 Schistocytes Not Reportable 05/05/21 07:44 Malaria parasites Not Reportable 05/05/21 07:44 Kilo Bodies Not Reportable 05/05/21 07:44 Hem Pathologist Commnt No 05/05/21 07:44 PT 17.4 Sec. (12.2-14.9) H 05/05/21 07:44 INR 1.27 (0.87-1.13) H 05/05/21 07:44 Sodium 126 mmol/L (137-145) L 05/05/21 07:44 Potassium 6.9 mmol/L (3.6-5.0) H* 05/05/21 07:44 Chloride 85.6 mmol/L (98-107) L 05/05/21 07:44 Carbon Dioxide 12 mmol/L (22-30) L 05/05/21 07:44 Anion Gap 35 mmol/L 05/05/21 07:44 BUN 155 mg/dL (7-17) H 05/05/21 07:44 Creatinine 10.3 mg/dL (0.6-1.2) H 05/05/21 07:44 Estimated GFR 5 ml/min 05/05/21 07:44 BUN/Creatinine Ratio 15 % 05/05/21 07:44 Glucose 84 mg/dL (65-100) 05/05/21 07:44 Lactic Acid 1.10 mmol/L (0.7-2.0) 05/05/21 07:44 Calcium 9.1 mg/dL (8.4-10.2) 05/05/21 07:44 Total Bilirubin 0.30 mg/dL (0.1-1.2) 05/05/21 07:44 AST 35 units/L (5-40) 05/05/21 07:44 ALT 14 units/L (7-56) 05/05/21 07:44 Alkaline Phosphatase 72 units/L (35-129) 05/05/21 07:44 Total Creatine Kinase 329 units/L (30-135) H 05/05/21 07:44 Troponin T 0.038 ng/mL (0.00-0.029) H 05/05/21 07:44 Total Protein 8.8 g/dL (6.3-8.2) H 05/05/21 07:44 Albumin 4.2 g/dL (3.9-5) 05/05/21 07:44 Albumin/Globulin Ratio 0.9 % 05/05/21 07:44 Triglycerides 97 mg/dL (2-149) 05/05/21 07:44 Cholesterol 110 mg/dL (50-199) 05/05/21 07:44 LDL Cholesterol Direct 64 mg/dL (50-130) 05/05/21 07:44 HDL Cholesterol 37 mg/dL (40-59) L 05/05/21 07:44 Cholesterol/HDL Ratio 2.97 % 05/05/21 07:44 TSH 2.510 mlU/mL (0.270-4.200) 05/05/21 07:44 Plasma/Serum Alcohol < 0.01 % (0-0.07) 05/05/21 07:44 Assessment and Plan Assessment and plan: Acute renal failure. Severe hyperkalemia Hyponatremia Generalized weakness and debility. paraplegia 05/05/2021. Hyperkalemia protocol has been initiated in the emergency department. The patient received insulin/glucose, calcium gluconate and Kayexalate. Nephrology has been consulted and I discussed the case with Dr. Dillrad. Patient may need to undergo emergent hemodialysis. Bilateral renal ultrasound ordered to rule out obstructive etiology. Follow-up electrolytes. Follow-up serologies for glomerulonephritis work-upcomplements C3-C4, J LUIS, etc. 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 We will consult Neurology and obtain a MRI of lumbar spine
[2021-05-05] MEDS ORDERED: ACETAMINOPHEN 325 MG TAB PO PRN (11:30)
[2021-05-05] MEDS ORDERED: MORPHINE 2 MG/1 ML INJ IV PRN (12:00)
[2021-05-05] MEDS ORDERED: ONDANSETRON 4 MG/2 ML INJ IV PRN (12:00)
[2021-05-05 12:25] LABS: HCG Qualitative,Urine Negative (Negative)
[2021-05-05 12:31] LABS: Bacteria,Urine 1+ /HPF (Negative); Bilirubin,Urine NEG (Negative); Blood,Urine SM (Negative); Color,Urine Yellow (Yellow); Mucus,Urine FEW /HPF; Protein,Urine <15 mg/dL mg/dL (Negative); Urobilinogen,Urine < 2.0 mg/dL (<2.0)
[2021-05-05 12:44] LABS: Amphetamine Screen,Urine PRESUMPTIVE NEGATIVE; Benzodiazepines Screen,Urine PRESUMPTIVE NEGATIVE; Cannabinoid Screen,Urine PRESUMPTIVE NEGATIVE; Cocaine Screen,Urine PRESUMPTIVE NEGATIVE; Methadone Screen,Urine PRESUMPTIVE NEGATIVE; Opiate Screen,Urine PRESUMPTIVE NEGATIVE
[2021-05-05 12:48] LABS: Creatinine,Urine 70.6 mg/dL (0.1-20.0); Protein/Creatinine Ratio,Urine 0.23
--- NOTE | 2021-05-05 12:55 | XRay Report ---
CHEST 1 VIEW INDICATION: Dyspnea. COMPARISON: None FINDINGS: Support devices: None. Heart: Within normal limits. Lungs/Pleura: No acute air space or interstitial disease. Additional findings: None. IMPRESSION: No acute findings. Signer Name: Aime Iqbal Jr, MD Signed: 05/05/2021 12:50 PM Workstation Name: [id number]
--- NOTE | 2021-05-05 14:00 | Ultrasound Report ---
ULTRASOUND RENAL INDICATION / CLINICAL INFORMATION: ARF. COMPARISON: CT dated 03/16/2021 FINDINGS: RIGHT KIDNEY: Size (in cm): 11.2 - Echogenicity: Normal. - Parenchymal Thickness: Normal. - Hydronephrosis: Mild right pelviectasis without munir hydronephrosis. - Cyst or mass: No significant abnormality. - Stones: None seen. LEFT KIDNEY: Size (in cm): 12.4 - Echogenicity: Normal. - Parenchymal Thickness: Normal. - Hydronephrosis: Mild pelviectasis without munir hydronephrosis. - Cyst or mass: No significant abnormality. - Stones: None seen. URINARY BLADDER: Mishra catheter is present within the bladder. The catheter was clamped to better ass ess the bladder. No significant bladder wall thickening. Mild echoes layering along the posterior isidro dder. FREE FLUID: None. ADDITIONAL FINDINGS: None. IMPRESSION: 1. Nonspecific mild bilateral pelviectasis without munir hydronephrosis. No other significant abnorm ality of the kidneys. 2. Mild echoes layering along the posterior bladder, may reflect proteinaceous or hemorrhagic debris . No significant bladder wall thickening. Signer Name: Tirso Islas MD Signed: 05/05/2021 1:55 PM Workstation Name: [id number]
--- NOTE | 2021-05-05 15:48 | Magnetic Resonance Report ---
MRI LUMBAR SPINE 05/05/2021 INDICATION / CLINICAL INFORMATION: functional paraplegia, BILAT LEG WEAKNESS AND PAIN. COMPARISON: None available. FINDINGS: GENERAL OBSERVATIONS: Unenhanced MR images of the lumbar spine were obtained. Moderate patient motion artifact is present on these images. There is no evidence of abnormality. Vertebral body height and alignment is well preserved. Disc profiles are normal at all levels. There is no evidence of stenosis or nerve root compression. BONE MARROW: Normal SPINAL CORD/CAUDA EQUINA: Normal PARASPINAL SOFT TISSUES: No significant abnormality. IMPRESSION: Negative unenhanced MRI of the lumbar spine. Signer Name: Daniel Person MD Signed: 05/05/2021 3:40 PM Workstation Name: [id number]
[2021-05-05 16:42] LABS: Calcium 8.5 mg/dL (8.4-10.2)
[2021-05-05] MEDS ORDERED: SODIUM BICARB 8.4% 50 MEQ/50 ML SYRINGE IV ONE (17:00)
[2021-05-05] MEDS: SODIUM BICARBONATE 150 MEQ in DEXTROSE 5% IN WATER 1,000 ML IV SCH (18:13)
[2021-05-05] MEDS: HEPARIN 5,000 UNIT/1 ML VIAL SUB-Q SCH (21:52)
[2021-05-06] MEDS: SODIUM BICARBONATE 150 MEQ in DEXTROSE 5% IN WATER 1,000 ML IV SCH (03:47)
[2021-05-06 05:28] LABS: Mean Corpuscular HGB Conc 33 % (30-34); Platelet Count 500 K/mm3 (140-440); Red Blood Count 1.51 M/mm3 (3.65-5.03)
[2021-05-06 05:44] LABS: Calcium 8.5 mg/dL (8.4-10.2)
[2021-05-06 06:23] LABS: Mean Corpuscular Volume 118 fl (79-97); Red Cell Distribution Width 20.8 % (13.2-15.2)
[2021-05-06 06:24] LABS: Hemoglobin 5.8 gm/dl (10.1-14.3)
[2021-05-06 06:25] LABS: Hematocrit 18.3 % (30.3-42.9)
[2021-05-06] MEDS: oxyCODONE /ACETAMINOPHEN 5-325MG TAB PO PRN ×2 (06:25→21:35)
[2021-05-06 07:06] LABS: Basophils % (Manual) 0 % (0.0-1.8); Eosinophils % (Manual) 0 % (0.0-4.3); Total Cells Counted 100
[2021-05-06 07:07] LABS: Anisocytosis 1+; Macrocytosis 1+; Poikilocytosis 1+; Tear Drop Cells Few
[2021-05-06 07:08] LABS: Platelet Estimate Consistent w Auto; Toxic Granulation 1+
[2021-05-06] MEDS ORDERED: SODIUM CHLORIDE 0.9% 500 ML 500 ML IV NR (07:30)
[2021-05-06] MEDS ORDERED: POTASSIUM CHLORIDE ER 20 MEQ TAB PO NR (07:36)
--- NOTE | 2021-05-06 10:07 | Progress Note ---
Assessment and Plan 1. Acute kidney injury: MAT in the setting of bladder obstruction and volume depletion. Renal US finding noted. Continue IV fluids. Monitor renal function. Creatinine level improving. Avoid nephrotoxic agents. Meds dosage based on GFR. 2. FEN: Hypokalemia, replete K, monitor. Anion-gap Metabolic acidosis, 2/2 MAT, improved, monitor. Hyponatremia, improved, monitor. Monitor lytes and volume status. 3. LE weakness: Functional paraplegia. MRI lumbar spine negative. Neuro consult. Monitor. 4. Bladder retention: S/p sotelo catheter. 5. Macrocytic anemia, POA: PRBC today. Monitor. 6. Anorexia. Subjective: Patient was seen and examined at the bedside. Staff at the bedside. Examination: General appearance: well-developed, appears stated age, no distress HEENT: atraumatic, MARY Neck: trachea midline Respiratory: ctab Heart: S1S2, regular, no murmur Abdomen: soft, bowel sounds heard, distended bladder noted Integumentary: no obvious rash Neurologic: somnolent, able to move UE, not able to move LEs Ext: no edema : Sotelo catheter Subjective Date of service: 05/06/21 Objective - Vital Signs Vital signs: Vital Signs - 12hr 05/05/21 05/06/21 05/06/21 23:17 01:25 03:05 Temperature 98.1 F 97.8 F Pulse Rate 104 H 102 H Respiratory 18 18 Rate Blood Pressure 108/57 120/64 O2 Sat by Pulse 100 100 97 Oximetry 05/06/21 07:57 Temperature 97.5 F L Pulse Rate 101 H Respiratory 16 Rate Blood Pressure 100/55 O2 Sat by Pulse 100 Oximetry - Lab 05/06/21 04:12 05/06/21 21:15 Most recent lab results Calcium 8.5 mg/dL (8.4-10.2) 05/06/21 04:12 Urine Creatinine 70.6 mg/dL (0.1-20.0) H 05/05/21 12:10 Urine Sodium 18 mmol/L 05/05/21 12:10 Urine Total Protein 16 mg/dL (5-11.8) H 05/05/21 12:10 Medications & Allergies - Medications Allergies/Adverse Reactions: Allergies No Known Allergies Allergy (Verified 05/05/21 06:57) Home Medications: Home Medications Medication Instructions Recorded Confirmed Last Taken Type Famotidine [Pepcid] 20 mg PO BID #60 tablet 12/04/20 05/05/21 Unknown Rx Pantoprazole [Protonix] 40 mg PO QDAY #30 tablet 12/04/20 05/05/21 Unknown Rx predniSONE [Deltasone] 20 mg PO BID 3 Days #6 tab 03/16/21 05/05/21 Unknown Rx Active Medications: Generic Name Dose Route Start Last Admin Trade Name Lay PRN Reason Stop Dose Admin Acetaminophen 650 mg 05/05/21 11:30 Acetaminophen 325 Mg Tab PO Q4H PRN Pain MILD(1-3)/Fever >100.5/GILLETTE Dextrose 0 ml 05/05/21 09:23 Dextrose 10% *Hypoglycemia IV PRN PRN Hypoglycemia Heparin Sodium (Porcine) 5,000 unit 05/05/21 22:00 05/05/21 21:52 Heparin 5,000 Unit/1 Ml Vial SUB-Q 5,000 unit Q12HR RIRI Administration Sodium Chloride 500 mls @ 0 mls/hr 05/06/21 07:30 Nacl 0.9% 500 Ml IV 05/06/21 18:00 ONCE NR As Directed Sodium Chloride 1,000 mls @ 75 mls/hr 05/06/21 08:00 Nacl 0.45% 1000 Ml IV DIRECT RIRI Morphine Sulfate 1 mg 05/05/21 12:00 Morphine 2 Mg/1 Ml Inj IV Q4H PRN Pain , Severe (7-10) Ondansetron HCl 4 mg 05/05/21 12:00 Ondansetron 4 Mg/2 Ml Inj IV Q8H PRN Nausea And Vomiting Oxycodone/Acetaminophen 1 tab 05/05/21 12:00 05/06/21 06:25 Oxycodone /Acetaminophen 5-325mg Tab PO 1 tab Q6H PRN Administration Pain, Moderate (4-6) Potassium Chloride 40 meq 05/06/21 07:36 Potassium Chloride Er 20 Meq Tab PO 05/06/21 12:00 ONCE NR Sodium Chloride 10 ml 05/05/21 22:00 05/05/21 21:53 Sodium Chloride 0.9% 10 Ml Flush Syringe IV 10 ml BID RIRI Administration Sodium Chloride 10 ml 05/05/21 12:00 Sodium Chloride 0.9% 10 Ml Flush Syringe IV PRN PRN LINE FLUSH
--- NOTE | 2021-05-06 10:59 | Progress Note ---
Assessment and Plan Assessment and plan: Acute renal failure. Severe hyperkalemia Hyponatremia Generalized weakness and debility. paraplegia 05/05/2021. Hyperkalemia protocol has been initiated in the emergency department. The patient received insulin/glucose, calcium gluconate and Kayexalate. Nephrology has been consulted and I discussed the case with Dr. Dillard. Patient may need to undergo emergent hemodialysis. Bilateral renal ul trasound ordered to rule out obstructive etiology. Follow-up electrolytes. Follow-up serologies for glomerulonephritis work-upcomplements C3-C4, J LUIS, etc. 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 We will consult Neurology and obtain a MRI of lumbar spine 05/06/2021. Nephrology feels acute kidney injury is secondary to bladder obstruction and volume depletion. Continue IV fluid hydration and monitor renal function closely. Renal prognosis remains guarded. Avoid nephrotoxic agents. Creatinine has much improved 10.3--->8.0--->4.1. Potassium has also improved an d patient is now hypokalemic. Replete potassium. MRI of lumbar spine was negative. Await neurology recommendations. Patient with significant anemia. Check Hemoccult of stools and iron studies. We will transfuse 2 units PRBCs History Interval history: No new issues overnight Hospitalist Physical - Constitutional Vitals: Temp Pulse Resp BP Pulse Ox 97.5 F L 101 H 16 100/55 100 05/06/21 07:57 05/06/21 07:57 05/06/21 07:57 05/06/21 07:57 05/06/21 07:57 General appearance: Present: no acute distress, well-nourished - EENT Eyes: Present: PERRL, EOM intact ENT: hearing intact, clear oral mucosa, dentition normal - Neck Neck: Present: supple, normal ROM - Respiratory Respiratory effort: normal Respiratory: bilateral: CTA - Cardiovascular Rhythm: regular Heart Sounds: Present: S1 & S2. Absent: gallop, rub - Extremities Extremities: no ischemia, No edema, Full ROM - Abdominal General gastrointestinal: soft, non-tender, non-distended, normal bowel sounds - Integumentary Integumentary: Present: clear, warm, dry - Neurologic Neurologic: CNII-XII intact, moves all extremities HEART Score - HEART Score Troponin: Troponin T 0.038 ng/mL (0.00-0.029) H 05/05/21 07:44 Results - Labs CBC & Chem 7: 05/06/21 04:12 05/06/21 04:12 Labs: Laboratory Last Values WBC 7.3 K/mm3 (4.5-11.0) 05/06/21 04:12 RBC 1.51 M/mm3 (3.65-5.03) L 05/06/21 04:12 Hgb 5.8 gm/dl (10.1-14.3) L* 05/06/21 04:12 Hct 18.3 % (30.3-42.9) L* 05/06/21 04:12 MCV 118 fl (79-97) H 05/06/21 04:12 MCH 39 pg (28-32) H 05/06/21 04:12 MCHC 33 % (30-34) 05/06/21 04:12 RDW 20.8 % (13.2-15.2) H 05/06/21 04:12 Plt Count 500 K/mm3 (140-440) H 05/06/21 04:12 Add Manual Diff Complete 05/06/21 04:12 Total Counted 100 05/06/21 04:12 Seg Neuts % (Manual) 80.0 % (40.0-70.0) H 05/06/21 04:12 Band Neutrophils % 0 % 05/06/21 04:12 Lymphocytes % (Manual) 15.0 % (13.4-35.0) 05/06/21 04:12 Reactive Lymphs % (Man) 0 % 05/06/21 04:12 Monocytes % (Manual) 5.0 % (0.0-7.3) 05/06/21 04:12 Eosinophils % (Manual) 0 % (0.0-4.3) 05/06/21 04:12 Basophils % (Manual) 0 % (0.0-1.8) 05/06/21 04:12 Metamyelocytes % 0 % 05/06/21 04:12 Myelocytes % 0 % 05/06/21 04:12 Promyelocytes % 0 % 05/06/21 04:12 Blast Cells % 0 % 05/06/21 04:12 Nucleated RBC % Not Reportable 05/06/21 04:12 Seg Neutrophils # Man 5.8 K/mm3 (1.8-7.7) 05/06/21 04:12 Band Neutrophils # 0.0 K/mm3 05/06/21 04:12 Lymphocytes # (Manual) 1.1 K/mm3 (1.2-5.4) L 05/06/21 04:12 Abs React Lymphs (Man) 0.0 K/mm3 05/06/21 04:12 Monocytes # (Manual) 0.4 K/mm3 (0.0-0.8) 05/06/21 04:12 Eosinophils # (Manual) 0.0 K/mm3 (0.0-0.4) 05/06/21 04:12 Basophils # (Manual) 0.0 K/mm3 (0.0-0.1) 05/06/21 04:12 Metamyelocytes # 0.0 K/mm3 05/06/21 04:12 Myelocytes # 0.0 K/mm3 05/06/21 04:12 Promyelocytes # 0.0 K/mm3 05/06/21 04:12 Blast Cells # 0.0 K/mm3 05/06/21 04:12 WBC Morphology Not Reportable 05/06/21 04:12 Hypersegmented Neuts Not Reportable 05/06/21 04:12 Hyposegmented Neuts Not Reportable 05/06/21 04:12 Hypogranular Neuts Not Reportable 05/06/21 04:12 Smudge Cells Not Reportable 05/06/21 04:12 Toxic Granulation 1+ 05/06/21 04:12 Toxic Vacuolation Not Reportable 05/06/21 04:12 Dohle Bodies Not Reportable 05/06/21 04:12 Pelger-Huet Anomaly Not Reportable 05/06/21 04:12 Celestine Rods Not Reportable 05/06/21 04:12 Platelet Estimate Consistent w auto 05/06/21 04:12 Clumped Platelets Not Reportable 05/06/21 04:12 Plt Clumps, EDTA Not Reportable 05/06/21 04:12 Large Platelets Not Reportable 05/06/21 04:12 Giant Platelets Not Reportable 05/06/21 04:12 Platelet Satelliting Not Reportable 05/06/21 04:12 Plt Morphology Comment Not Reportable 05/06/21 04:12 RBC Morphology Not Reportable 05/06/21 04:12 Dimorphic RBCs Not Reportable 05/06/21 04:12 Polychromasia Not Reportable 05/06/21 04:12 Hypochromasia Not Reportable 05/06/21 04:12 Poikilocytosis 1+ 05/06/21 04:12 Anisocytosis 1+ 05/06/21 04:12 Microcytosis Not Reportable 05/06/21 04:12 Macrocytosis 1+ 05/06/21 04:12 Spherocytes Not Reportable 05/06/21 04:12 Pappenheimer Bodies Not Reportable 05/06/21 04:12 Sickle Cells Not Reportable 05/06/21 04:12 Target Cells Not Reportable 05/06/21 04:12 Tear Drop Cells Few 05/06/21 04:12 Ovalocytes Not Reportable 05/06/21 04:12 Helmet Cells Not Reportable 05/06/21 04:12 Mireles-Bessie Bodies Not Reportable 05/06/21 04:12 [place] Rings Not Reportable 05/06/21 04:12 Moy Cells Not Reportable 05/06/21 04:12 Bite Cells Not Reportable 05/06/21 04:12 Crenated Cell Not Reportable 05/06/21 04:12 Elliptocytes Few 05/06/21 04:12 Acanthocytes (Spur) Not Reportable 05/06/21 04:12 Rouleaux Not Reportable 05/06/21 04:12 Hemoglobin C Crystals Not Reportable 05/06/21 04:12 Schistocytes Not Reportable 05/06/21 04:12 Malaria parasites Not Reportable 05/06/21 04:12 Kilo Bodies Not Reportable 05/06/21 04:12 Hem Pathologist Commnt No 05/06/21 04:12 PT 17.4 Sec. (12.2-14.9) H 05/05/21 07:44 INR 1.27 (0.87-1.13) H 05/05/21 07:44 Sodium 147 mmol/L (137-145) H D 05/06/21 04:12 Potassium 2.7 mmol/L (3.6-5.0) L* D 05/06/21 04:12 Chloride 104.5 mmol/L (98-107) 05/06/21 04:12 Carbon Dioxide 21 mmol/L (22-30) L D 05/06/21 04:12 Anion Gap 24 mmol/L 05/06/21 04:12 BUN 85 mg/dL (7-17) H 05/06/21 04:12 Creatinine 4.1 mg/dL (0.6-1.2) H 05/06/21 04:12 Estimated GFR 16 ml/min 05/06/21 04:12 BUN/Creatinine Ratio 21 % 05/06/21 04:12 Glucose 101 mg/dL (65-100) H 05/06/21 04:12 Lactic Acid 1.10 mmol/L (0.7-2.0) 05/05/21 07:44 Calcium 8.5 mg/dL (8.4-10.2) 05/06/21 04:12 Total Bilirubin 0.30 mg/dL (0.1-1.2) 05/05/21 07:44 AST 35 units/L (5-40) 05/05/21 07:44 ALT 14 units/L (7-56) 05/05/21 07:44 Alkaline Phosphatase 72 units/L (35-129) 05/05/21 07:44 Total Creatine Kinase 329 units/L (30-135) H 05/05/21 07:44 Troponin T 0.038 ng/mL (0.00-0.029) H 05/05/21 07:44 Total Protein 8.8 g/dL (6.3-8.2) H 05/05/21 07:44 Albumin 4.2 g/dL (3.9-5) 05/05/21 07:44 Albumin/Globulin Ratio 0.9 % 05/05/21 07:44 Triglycerides 97 mg/dL (2-149) 05/05/21 07:44 Cholesterol 110 mg/dL (50-199) 05/05/21 07:44 LDL Cholesterol Direct 64 mg/dL (50-130) 05/05/21 07:44 HDL Cholesterol 37 mg/dL (40-59) L 05/05/21 07:44 Cholesterol/HDL Ratio 2.97 % 05/05/21 07:44 TSH 2.510 mlU/mL (0.270-4.200) 05/05/21 07:44 Urine Color Yellow (Yellow) 05/05/21 12:10 Urine Turbidity Clear (Clear) 05/05/21 12:10 Urine pH 8.0 (5.0-7.0) H 05/05/21 12:10 Ur Specific [place] 1.009 (1.003-1.030) 05/05/21 12:10 Urine Protein <15 mg/dl mg/dL (Negative) 05/05/21 12:10 Urine Glucose (UA) Neg mg/dL (Negative) 05/05/21 12:10 Urine Ketones Neg mg/dL (Negative) 05/05/21 12:10 Urine Blood Sm (Negative) 05/05/21 12:10 Urine Nitrite Neg (Negative) 05/05/21 12:10 Ur Reducing Substances Not Reportable 05/05/21 12:10 Urine Bilirubin Neg (Negative) 05/05/21 12:10 Urine Ictotest Not Reportable 05/05/21 12:10 Urine Urobilinogen < 2.0 mg/dL (<2.0) 05/05/21 12:10 Ur Leukocyte Esterase Mod (Negative) 05/05/21 12:10 Urine WBC (Auto) 20.0 /HPF (0.0-6.0) H 05/05/21 12:10 Urine RBC (Auto) 3.0 /HPF (0.0-6.0) 05/05/21 12:10 U Epithel Cells (Auto) 4.0 /HPF (0-13.0) 05/05/21 12:10 Urine Bacteria (Auto) 1+ /HPF (Negative) 05/05/21 12:10 Urine Mucus Few /HPF 05/05/21 12:10 Urine Eosinophils None seen (None Seen) 05/05/21 12:10 Urine Creatinine 70.6 mg/dL (0.1-20.0) H 05/05/21 12:10 Protein/Creatinin Ratio 0.23 05/05/21 12:10 Urine Sodium 18 mmol/L 05/05/21 12:10 Urine Total Protein 16 mg/dL (5-11.8) H 05/05/21 12:10 Urine HCG, Qual Negative (Negative) 05/05/21 12:10 Urine Opiates Screen Presumptive negative 05/05/21 12:10 Urine Methadone Screen Presumptive negative 05/05/21 12:10 Ur Barbiturates Screen Presumptive negative 05/05/21 12:10 Ur Phencyclidine Scrn Presumptive negative 05/05/21 12:10 Ur Amphetamines Screen Presumptive negative 05/05/21 12:10 U Benzodiazepines Scrn Presumptive negative 05/05/21 12:10 Urine Cocaine Screen Presumptive negative 05/05/21 12:10 U Marijuana (THC) Screen Presumptive negative 05/05/21 12:10 Drugs of Abuse Note Disclamer 05/05/21 12:10 Plasma/Serum Alcohol < 0.01 % (0-0.07) 05/05/21 07:44 Blood Type O POSITIVE 05/06/21 08:48 Antibody Screen Negative 05/06/21 08:48 Crossmatch See Detail 05/06/21 08:48 Mishra/IV: Voiding Method Indwelling Catheter Active Medications - Current Medications Current Medications: Generic Name Dose Route Start Last Admin Trade Name Freq PRN Reason Stop Dose Admin Acetaminophen 650 mg 05/05/21 11:30 Acetaminophen 325 Mg Tab PO Q4H PRN Pain MILD(1-3)/Fever >100.5/GILLETTE Dextrose 0 ml 05/05/21 09:23 Dextrose 10% *Hypoglycemia IV PRN PRN Hypoglycemia Heparin Sodium (Porcine) 5,000 unit 05/05/21 22:00 05/05/21 21:52 Heparin 5,000 Unit/1 Ml Vial SUB-Q 5,000 unit Q12HR RIRI Administration Sodium Chloride 500 mls @ 0 mls/hr 05/06/21 07:30 Nacl 0.9% 500 Ml IV 05/06/21 18:00 ONCE NR As Directed Sodium Chloride 1,000 mls @ 75 mls/hr 05/06/21 08:00 Nacl 0.45% 1000 Ml IV DIRECT RIRI Morphine Sulfate 1 mg 05/05/21 12:00 Morphine 2 Mg/1 Ml Inj IV Q4H PRN Pain , Severe (7-10) Ondansetron HCl 4 mg 05/05/21 12:00 Ondansetron 4 Mg/2 Ml Inj IV Q8H PRN Nausea And Vomiting Oxycodone/Acetaminophen 1 tab 05/05/21 12:00 05/06/21 06:25 Oxycodone /Acetaminophen 5-325mg Tab PO 1 tab Q6H PRN Administration Pain, Moderate (4-6) Potassium Chloride 40 meq 05/06/21 07:36 05/06/21 10:31 Potassium Chloride Er 20 Meq Tab PO 05/06/21 12:00 40 meq ONCE NR Administration Sodium Chloride 10 ml 05/05/21 22:00 05/06/21 10:31 Sodium Chloride 0.9% 10 Ml Flush Syringe IV 10 ml BID RIRI Administration Sodium Chloride 10 ml 05/05/21 12:00 Sodium Chloride 0.9% 10 Ml Flush Syringe IV PRN PRN LINE FLUSH
[2021-05-06] MEDS ORDERED: SODIUM CHLORIDE 0.9% 500 ML 500 ML IV SCH (11:11)
[2021-05-06] MEDS: HEPARIN 5,000 UNIT/1 ML VIAL SUB-Q SCH ×2 (14:14→21:34)
[2021-05-06] MEDS: SODIUM CHLORIDE 0.45% 1000 ML 1,000 ML IV SCH (14:17)
--- NOTE | 2021-05-06 16:08 | Consultation ---
History of Present Illness Consult date: 05/06/21 Reason for Consult: weakness History of present illness: This is a 30-year-old female who presents to the emergency department with complaints of bilateral lower extremity swelling, vague abdominal and back pain and generalized weakness. Patient also reportedly has had poor urine output. Patient is accompanied by her mother who is at the bedside. She reportedly has been incontinent for 5 months. Patient has had multiple ER visits at various hospitals including a previous ER visit here with similar complaints back in February with CT scan of the abdomen and pelvis that was found to be negative. Patient is also had ER visits at [facility] and [place] with similar complaints. No reports of any hospitalization her last creatinine reported here on her ER visit in February was 0.4. Patient denies any chest pain but does complain of some mild shortness of breath. Patient is somewhat somnolent and lethargic throughout the interview. All the history was essentially obtain from the mother. The patient reports numbness and tingling in the LE. The patient reports progressive weakness . Past History Past Medical History: No medical history Past Surgical History: No surgical history Social history: no significant social history Family history: no significant family history Medications and Allergies Allergies Allergy/AdvReac Type Severity Reaction Status Date / Time No Known Allergies Allergy Verified 05/05/21 06:57 Home Medications Medication Instructions Recorded Confirmed Last Taken Type Famotidine [Pepcid] 20 mg PO BID #60 tablet 12/04/20 05/05/21 Unknown Rx Pantoprazole [Protonix] 40 mg PO QDAY #30 tablet 12/04/20 05/05/21 Unknown Rx predniSONE [Deltasone] 20 mg PO BID 3 Days #6 tab 03/16/21 05/05/21 Unknown Rx Active Meds: Active Medications Acetaminophen (Acetaminophen 325 Mg Tab) 650 mg PO Q4H PRN PRN Reason: Pain MILD(1-3)/Fever >100.5/GILLETTE Dextrose (Dextrose 10% *Hypoglycemia) 0 ml IV PRN PRN PRN Reason: Hypoglycemia Heparin Sodium (Porcine) (Heparin 5,000 Unit/1 Ml Vial) 5,000 unit SUB-Q Q12HR RIRI Last Admin: 05/06/21 14:14 Dose: Not Given Sodium Chloride (Nacl 0.9% 500 Ml) 500 mls @ 0 mls/hr IV ONCE NR Stop: 05/06/21 18:00 Sodium Chloride (Nacl 0.45% 1000 Ml) 1,000 mls @ 75 mls/hr IV DIRECT RIRI Last Admin: 05/06/21 14:17 Dose: 75 mls/hr Sodium Chloride (Nacl 0.9% 500 Ml) 500 mls @ 0 mls/hr IV ONCE RIRI Morphine Sulfate (Morphine 2 Mg/1 Ml Inj) 1 mg IV Q4H PRN PRN Reason: Pain , Severe (7-10) Ondansetron HCl (Ondansetron 4 Mg/2 Ml Inj) 4 mg IV Q8H PRN PRN Reason: Nausea And Vomiting Oxycodone/Acetaminophen (Oxycodone /Acetaminophen 5-325mg Tab) 1 tab PO Q6H PRN PRN Reason: Pain, Moderate (4-6) Last Admin: 05/06/21 06:25 Dose: 1 tab Sodium Chloride (Sodium Chloride 0.9% 10 Ml Flush Syringe) 10 ml IV BID RIRI Last Admin: 05/06/21 10:31 Dose: 10 ml Sodium Chloride (Sodium Chloride 0.9% 10 Ml Flush Syringe) 10 ml IV PRN PRN PRN Reason: LINE FLUSH Physical Examination - Vital Signs Vital Signs: Vital Signs Temp Pulse Resp BP Pulse Ox 98 F 86 20 130/80 98 05/05/21 06:54 05/05/21 06:54 05/05/21 06:54 05/05/21 06:54 05/05/21 06:54 - Physical Exam Narrative exam: The patient is alert, reports. There is weakness in the LE , is unable to life the LE above the bed . Gait is noted tested DTRS are not done. Results - Laboratory Findings CBC and BMP: 05/06/21 04:12 05/06/21 04:12 Abnormal Lab Findings: Abnormal Labs 05/05/21 05/05/21 05/05/21 07:44 07:44 07:44 WBC 11.4 H RBC 1.90 L Hgb 7.3 L Hct 23.0 L MCV 121 H MCH 38 H RDW 20.8 H Plt Count 545 H Seg Neuts % (Manual) 77.0 H Seg Neutrophils # Man 8.8 H Lymphocytes # (Manual) PT 17.4 H INR 1.27 H Sodium 126 L Potassium 6.9 H* Chloride 85.6 L Carbon Dioxide 12 L BUN 155 H Creatinine 10.3 H Glucose Total Creatine Kinase 329 H Troponin T 0.038 H Total Protein 8.8 H HDL Cholesterol 37 L Urine pH Urine WBC (Auto) Urine Creatinine Urine Total Protein Crossmatch 05/05/21 05/05/21 05/05/21 12:10 12:10 16:07 WBC RBC Hgb Hct MCV MCH RDW Plt Count Seg Neuts % (Manual) Seg Neutrophils # Man Lymphocytes # (Manual) PT INR Sodium Potassium Chloride 96.9 L Carbon Dioxide 11 L BUN 128 H Creatinine 8.0 H Glucose 103 H Total Creatine Kinase Troponin T Total Protein HDL Cholesterol Urine pH 8.0 H Urine WBC (Auto) 20.0 H Urine Creatinine 70.6 H Urine Total Protein 16 H Crossmatch 05/06/21 05/06/21 05/06/21 04:12 04:12 08:48 WBC RBC 1.51 L Hgb 5.8 L* Hct 18.3 L* MCV 118 H MCH 39 H RDW 20.8 H Plt Count 500 H Seg Neuts % (Manual) 80.0 H Seg Neutrophils # Man Lymphocytes # (Manual) 1.1 L PT INR Sodium 147 H D Potassium 2.7 L* D Chloride Carbon Dioxide 21 L D BUN 85 H Creatinine 4.1 H Glucose 101 H Total Creatine Kinase Troponin T Total Protein HDL Cholesterol Urine pH Urine WBC (Auto) Urine Creatinine Urine Total Protein Crossmatch See Detail Assessment and Plan 1. [place] in the LE and UE ( in the differential diagnosis includes LMN - CIDP / UMN - Demyelinating Disease ). 2. MRI Brain / Cervical and Thoracic Spine . 3. LP for Protiens / Sugar / VDRL . 4. Out Patient Neurology for Nerve Conduction Study . 5. Call me with results for discussion of Further Management . Dr. Negrete
[2021-05-06] MEDS ORDERED: POTASSIUM CHLORIDE ER 20 MEQ TAB PO SCH (17:46)
[2021-05-06 21:53] LABS: Calcium 8.4 mg/dL (8.4-10.2)
[2021-05-06] MEDS: POTASSIUM CHLORIDE 10 MEQ 10 MEQ/100 ML BAG IV SCH (23:50)
[2021-05-07 00:36] LABS: Hematocrit 21.9 % (30.3-42.9); Hemoglobin 7.4 gm/dl (10.1-14.3)
[2021-05-07] MEDS: POTASSIUM CHLORIDE 10 MEQ 10 MEQ/100 ML BAG IV SCH ×3 (00:53→03:35)
[2021-05-07] MEDS: oxyCODONE /ACETAMINOPHEN 5-325MG TAB PO PRN (04:44)
[2021-05-07] MEDS: SODIUM CHLORIDE 0.45% 1000 ML 1,000 ML IV SCH ×2 (06:29→21:53)
[2021-05-07 07:26] LABS: Calcium 8.6 mg/dL (8.4-10.2)
[2021-05-07] MEDS ORDERED: POTASSIUM CHLORIDE ER 20 MEQ TAB PO ONE (09:28)
--- NOTE | 2021-05-07 09:29 | Progress Note ---
Assessment and Plan 1. Acute kidney injury: MAT in the setting of bladder obstruction and volume depletion. Renal US finding noted. Continue IV fluids. Monitor renal function. Creatinine level improving. Avoid nephrotoxic agents. Meds dosage based on GFR. 2. FEN: Hypokalemia, replete K, monitor. Anion-gap Metabolic acidosis, 2/2 MAT, improved, monitor. Hyponatremia, improved, monitor. Monitor lytes and volume status. 3. LE weakness: ?Functional paraplegia. MRI lumbar spine negative. Seen by Neuro. Monitor. 4. Bladder retention: S/p sotelo catheter. 5. Macrocytic anemia, POA: S/p PRBC. Monitor. 6. Anorexia. Subjective: Patient was seen and examined at the bedside. Staff at the bedside. Examination: General appearance: well-developed, appears stated age, no distress HEENT: atraumatic, MARY Neck: trachea midline Respiratory: ctab Heart: S1S2, regular, no murmur Abdomen: soft, bowel sounds heard, NT Integumentary: no obvious rash Neurologic: somnolent, able to move UE, not able to move LEs Ext: no edema : Sotelo catheter Subjective Date of service: 05/07/21 Objective - Vital Signs Vital signs: Vital Signs - 12hr 05/06/21 05/06/21 05/07/21 22:00 22:52 03:17 Temperature 98.3 F 98.2 F Pulse Rate 93 H 92 H Respiratory 16 17 Rate Blood Pressure 138/86 128/85 O2 Sat by Pulse 100 100 100 Oximetry 05/07/21 05/07/21 05:09 07:54 Temperature 98.4 F Pulse Rate 84 Respiratory 16 Rate Blood Pressure 127/76 O2 Sat by Pulse 100 100 Oximetry - Lab 05/08/21 06:34 05/08/21 06:34 Most recent lab results Calcium 8.6 mg/dL (8.4-10.2) 05/07/21 06:35 Phosphorus 3.30 mg/dL (2.5-4.5) 05/07/21 06:35 Magnesium 2.00 mg/dL (1.7-2.3) 05/07/21 06:35 Urine Creatinine 70.6 mg/dL (0.1-20.0) H 05/05/21 12:10 Urine Sodium 18 mmol/L 05/05/21 12:10 Urine Total Protein 16 mg/dL (5-11.8) H 05/05/21 12:10 Medications & Allergies - Medications Allergies/Adverse Reactions: Allergies No Known Allergies Allergy (Verified 05/05/21 06:57) Home Medications: Home Medications Medication Instructions Recorded Confirmed Last Taken Type Famotidine [Pepcid] 20 mg PO BID #60 tablet 12/04/20 05/05/21 Unknown Rx Pantoprazole [Protonix TAB] 40 mg PO QDAY #30 tablet 12/04/20 05/05/21 Unknown Rx predniSONE [Deltasone] 20 mg PO BID 3 Days #6 tab 03/16/21 05/05/21 Unknown Rx Active Medications: Generic Name Dose Route Start Last Admin Trade Name Freq PRN Reason Stop Dose Admin Acetaminophen 650 mg 05/05/21 11:30 Acetaminophen 325 Mg Tab PO Q4H PRN Pain MILD(1-3)/Fever >100.5/GILLETTE Dextrose 0 ml 05/05/21 09:23 Dextrose 10% *Hypoglycemia IV PRN PRN Hypoglycemia Heparin Sodium (Porcine) 5,000 unit 05/05/21 22:00 05/06/21 21:34 Heparin 5,000 Unit/1 Ml Vial SUB-Q Not Given Q12HR RIRI Sodium Chloride 1,000 mls @ 75 mls/hr 05/06/21 08:00 05/07/21 06:29 Nacl 0.45% 1000 Ml IV 75 mls/hr DIRECT RIRI Administration Morphine Sulfate 1 mg 05/05/21 12:00 Morphine 2 Mg/1 Ml Inj IV Q4H PRN Pain , Severe (7-10) Ondansetron HCl 4 mg 05/05/21 12:00 Ondansetron 4 Mg/2 Ml Inj IV Q8H PRN Nausea And Vomiting Oxycodone/Acetaminophen 1 tab 05/05/21 12:00 05/07/21 04:44 Oxycodone /Acetaminophen 5-325mg Tab PO 1 tab Q6H PRN Administration Pain, Moderate (4-6) Potassium Chloride 40 meq 05/06/21 17:46 Potassium Chloride Er 20 Meq Tab PO 05/07/21 17:45 ONCE RIRI Potassium Chloride 40 meq 05/07/21 09:28 Potassium Chloride Er 20 Meq Tab PO 05/07/21 09:29 ONCE ONE Sodium Chloride 10 ml 05/05/21 22:00 05/06/21 21:35 Sodium Chloride 0.9% 10 Ml Flush Syringe IV 10 ml BID RIRI Administration Sodium Chloride 10 ml 05/05/21 12:00 Sodium Chloride 0.9% 10 Ml Flush Syringe IV PRN PRN LINE FLUSH
--- NOTE | 2021-05-07 09:45 | Progress Note ---
Assessment and Plan Assessment and plan: Acute renal failure. Severe hyperkalemia Hyponatremia Generalized weakness and debility. paraplegia 05/05/2021. Hyperkalemia protocol has been initiated in the emergency department. The patient received insulin/glucose, calcium gluconate and Kayexalate. Nephrology has been consulted and I discussed the case with Dr. Dillard. Patient may need to undergo emergent hemodialysis. Bilateral renal ul trasound ordered to rule out obstructive etiology. Follow-up electrolytes. Follow-up serologies for glomerulonephritis work-upcomplements C3-C4, J LUIS, etc. 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 We will consult Neurology and obtain a MRI of lumbar spine 05/06/2021. Nephrology feels acute kidney injury is secondary to bladder obstruction and volume depletion. Continue IV fluid hydration and monitor renal function closely. Renal prognosis remains guarded. Avoid nephrotoxic agents. Creatinine has much improved 10.3--->8.0--->4.1. Potassium has also improved an d patient is now hypokalemic. Replete potassium. MRI of lumbar spine was negative. Await neurology recommendations. Patient with significant anemia. Check Hemoccult of stools and iron studies. We will transfuse 2 units PRBCs 05/07/2021. Neurology reports weakness in the LE and UE ( in the differential diagnosis includes LMN - CIDP / UMN - Demyelinating Disease ). F/U MRI brain, cervical and thoracic spine. Neurology reports lumbar puncture for proteins, glucose and VDRL. Acute kidney injury secondary to bladder obstruction and volume depletion continue IV fluid hydration. Creatinine has much improved 10.3--->8.0--->4.1--->2.0--->1.6. Replete potassium. Patient is s/p 2 units IN BCs. Follow-up H&H History Interval history: No new issues overnight Hospitalist Physical - Constitutional Vitals: Temp Pulse Resp BP Pulse Ox 98.4 F 84 16 127/76 100 05/07/21 07:54 05/07/21 07:54 05/07/21 07:54 05/07/21 07:54 05/07/21 07:54 General appearance: Present: no acute distress, well-nourished - EENT Eyes: Present: PERRL, EOM intact ENT: hearing intact, clear oral mucosa, dentition normal - Neck Neck: Present: supple, normal ROM - Respiratory Respiratory effort: normal Respiratory: bilateral: CTA - Cardiovascular Rhythm: regular Heart Sounds: Present: S1 & S2. Absent: gallop, rub - Extremities Extremities: no ischemia, No edema, Full ROM - Abdominal General gastrointestinal: soft, non-tender, non-distended, normal bowel sounds - Integumentary Integumentary: Present: clear, warm, dry - Neurologic Neurologic: CNII-XII intact, moves all extremities HEART Score - HEART Score Troponin: Troponin T 0.038 ng/mL (0.00-0.029) H 05/05/21 07:44 Results - Labs CBC & Chem 7: 05/07/21 00:07 05/07/21 06:35 Labs: Laboratory Last Values WBC 7.3 K/mm3 (4.5-11.0) 05/06/21 04:12 RBC 1.51 M/mm3 (3.65-5.03) L 05/06/21 04:12 Hgb 7.4 gm/dl (10.1-14.3) L 05/07/21 00:07 Hct 21.9 % (30.3-42.9) L 05/07/21 00:07 MCV 118 fl (79-97) H 05/06/21 04:12 MCH 39 pg (28-32) H 05/06/21 04:12 MCHC 33 % (30-34) 05/06/21 04:12 RDW 20.8 % (13.2-15.2) H 05/06/21 04:12 Plt Count 500 K/mm3 (140-440) H 05/06/21 04:12 Add Manual Diff Complete 05/06/21 04:12 Total Counted 100 05/06/21 04:12 Seg Neuts % (Manual) 80.0 % (40.0-70.0) H 05/06/21 04:12 Band Neutrophils % 0 % 05/06/21 04:12 Lymphocytes % (Manual) 15.0 % (13.4-35.0) 05/06/21 04:12 Reactive Lymphs % (Man) 0 % 05/06/21 04:12 Monocytes % (Manual) 5.0 % (0.0-7.3) 05/06/21 04:12 Eosinophils % (Manual) 0 % (0.0-4.3) 05/06/21 04:12 Basophils % (Manual) 0 % (0.0-1.8) 05/06/21 04:12 Metamyelocytes % 0 % 05/06/21 04:12 Myelocytes % 0 % 05/06/21 04:12 Promyelocytes % 0 % 05/06/21 04:12 Blast Cells % 0 % 05/06/21 04:12 Nucleated RBC % Not Reportable 05/06/21 04:12 Seg Neutrophils # Man 5.8 K/mm3 (1.8-7.7) 05/06/21 04:12 Band Neutrophils # 0.0 K/mm3 05/06/21 04:12 Lymphocytes # (Manual) 1.1 K/mm3 (1.2-5.4) L 05/06/21 04:12 Abs React Lymphs (Man) 0.0 K/mm3 05/06/21 04:12 Monocytes # (Manual) 0.4 K/mm3 (0.0-0.8) 05/06/21 04:12 Eosinophils # (Manual) 0.0 K/mm3 (0.0-0.4) 05/06/21 04:12 Basophils # (Manual) 0.0 K/mm3 (0.0-0.1) 05/06/21 04:12 Metamyelocytes # 0.0 K/mm3 05/06/21 04:12 Myelocytes # 0.0 K/mm3 05/06/21 04:12 Promyelocytes # 0.0 K/mm3 05/06/21 04:12 Blast Cells # 0.0 K/mm3 05/06/21 04:12 WBC Morphology Not Reportable 05/06/21 04:12 Hypersegmented Neuts Not Reportable 05/06/21 04:12 Hyposegmented Neuts Not Reportable 05/06/21 04:12 Hypogranular Neuts Not Reportable 05/06/21 04:12 Smudge Cells Not Reportable 05/06/21 04:12 Toxic Granulation 1+ 05/06/21 04:12 Toxic Vacuolation Not Reportable 05/06/21 04:12 Dohle Bodies Not Reportable 05/06/21 04:12 Pelger-Huet Anomaly Not Reportable 05/06/21 04:12 Celestine Rods Not Reportable 05/06/21 04:12 Platelet Estimate Consistent w auto 05/06/21 04:12 Clumped Platelets Not Reportable 05/06/21 04:12 Plt Clumps, EDTA Not Reportable 05/06/21 04:12 Large Platelets Not Reportable 05/06/21 04:12 Giant Platelets Not Reportable 05/06/21 04:12 Platelet Satelliting Not Reportable 05/06/21 04:12 Plt Morphology Comment Not Reportable 05/06/21 04:12 RBC Morphology Not Reportable 05/06/21 04:12 Dimorphic RBCs Not Reportable 05/06/21 04:12 Polychromasia Not Reportable 05/06/21 04:12 Hypochromasia Not Reportable 05/06/21 04:12 Poikilocytosis 1+ 05/06/21 04:12 Anisocytosis 1+ 05/06/21 04:12 Microcytosis Not Reportable 05/06/21 04:12 Macrocytosis 1+ 05/06/21 04:12 Spherocytes Not Reportable 05/06/21 04:12 Pappenheimer Bodies Not Reportable 05/06/21 04:12 Sickle Cells Not Reportable 05/06/21 04:12 Target Cells Not Reportable 05/06/21 04:12 Tear Drop Cells Few 05/06/21 04:12 Ovalocytes Not Reportable 05/06/21 04:12 Helmet Cells Not Reportable 05/06/21 04:12 Mireles-[place] Bodies Not Reportable 05/06/21 04:12 [place] Rings Not Reportable 05/06/21 04:12 Moy Cells Not Reportable 05/06/21 04:12 Bite Cells Not Reportable 05/06/21 04:12 Crenated Cell Not Reportable 05/06/21 04:12 Elliptocytes Few 05/06/21 04:12 Acanthocytes (Spur) Not Reportable 05/06/21 04:12 Rouleaux Not Reportable 05/06/21 04:12 Hemoglobin C Crystals Not Reportable 05/06/21 04:12 Schistocytes Not Reportable 05/06/21 04:12 Malaria parasites Not Reportable 05/06/21 04:12 Kilo Bodies Not Reportable 05/06/21 04:12 Hem Pathologist Commnt No 05/06/21 04:12 PT 17.4 Sec. (12.2-14.9) H 05/05/21 07:44 INR 1.27 (0.87-1.13) H 05/05/21 07:44 Sodium 140 mmol/L (137-145) 05/07/21 06:35 Potassium 3.3 mmol/L (3.6-5.0) L 05/07/21 06:35 Chloride 104.4 mmol/L (98-107) 05/07/21 06:35 Carbon Dioxide 23 mmol/L (22-30) 05/07/21 06:35 Anion Gap 16 mmol/L 05/07/21 06:35 BUN 37 mg/dL (7-17) H 05/07/21 06:35 Creatinine 1.6 mg/dL (0.6-1.2) H 05/07/21 06:35 Estimated GFR 46 ml/min 05/07/21 06:35 BUN/Creatinine Ratio 23 % 05/07/21 06:35 Glucose 88 mg/dL (65-100) 05/07/21 06:35 Lactic Acid 1.10 mmol/L (0.7-2.0) 05/05/21 07:44 Calcium 8.6 mg/dL (8.4-10.2) 05/07/21 06:35 Phosphorus 3.30 mg/dL (2.5-4.5) 05/07/21 06:35 Magnesium 2.00 mg/dL (1.7-2.3) 05/07/21 06:35 Total Bilirubin 0.30 mg/dL (0.1-1.2) 05/05/21 07:44 AST 35 units/L (5-40) 05/05/21 07:44 ALT 14 units/L (7-56) 05/05/21 07:44 Alkaline Phosphatase 72 units/L (35-129) 05/05/21 07:44 Total Creatine Kinase 329 units/L (30-135) H 05/05/21 07:44 Troponin T 0.038 ng/mL (0.00-0.029) H 05/05/21 07:44 Total Protein 8.8 g/dL (6.3-8.2) H 05/05/21 07:44 Albumin 4.2 g/dL (3.9-5) 05/05/21 07:44 Albumin/Globulin Ratio 0.9 % 05/05/21 07:44 Triglycerides 97 mg/dL (2-149) 05/05/21 07:44 Cholesterol 110 mg/dL (50-199) 05/05/21 07:44 LDL Cholesterol Direct 64 mg/dL (50-130) 05/05/21 07:44 HDL Cholesterol 37 mg/dL (40-59) L 05/05/21 07:44 Cholesterol/HDL Ratio 2.97 % 05/05/21 07:44 TSH 2.510 mlU/mL (0.270-4.200) 05/05/21 07:44 Urine Color Yellow (Yellow) 05/05/21 12:10 Urine Turbidity Clear (Clear) 05/05/21 12:10 Urine pH 8.0 (5.0-7.0) H 05/05/21 12:10 Ur Specific [place] 1.009 (1.003-1.030) 05/05/21 12:10 Urine Protein <15 mg/dl mg/dL (Negative) 05/05/21 12:10 Urine Glucose (UA) Neg mg/dL (Negative) 05/05/21 12:10 Urine Ketones Neg mg/dL (Negative) 05/05/21 12:10 Urine Blood Sm (Negative) 05/05/21 12:10 Urine Nitrite Neg (Negative) 05/05/21 12:10 Ur Reducing Substances Not Reportable 05/05/21 12:10 Urine Bilirubin Neg (Negative) 05/05/21 12:10 Urine Ictotest Not Reportable 05/05/21 12:10 Urine Urobilinogen < 2.0 mg/dL (<2.0) 05/05/21 12:10 Ur Leukocyte Esterase Mod (Negative) 05/05/21 12:10 Urine WBC (Auto) 20.0 /HPF (0.0-6.0) H 05/05/21 12:10 Urine RBC (Auto) 3.0 /HPF (0.0-6.0) 05/05/21 12:10 U Epithel Cells (Auto) 4.0 /HPF (0-13.0) 05/05/21 12:10 Urine Bacteria (Auto) 1+ /HPF (Negative) 05/05/21 12:10 Urine Mucus Few /HPF 05/05/21 12:10 Urine Eosinophils None seen (None Seen) 05/05/21 12:10 Urine Creatinine 70.6 mg/dL (0.1-20.0) H 05/05/21 12:10 Protein/Creatinin Ratio 0.23 05/05/21 12:10 Urine Sodium 18 mmol/L 05/05/21 12:10 Urine Total Protein 16 mg/dL (5-11.8) H 05/05/21 12:10 Urine HCG, Qual Negative (Negative) 05/05/21 12:10 Urine Opiates Screen Presumptive negative 05/05/21 12:10 Urine Methadone Screen Presumptive negative 05/05/21 12:10 Ur Barbiturates Screen Presumptive negative 05/05/21 12:10 Ur Phencyclidine Scrn Presumptive negative 05/05/21 12:10 Ur Amphetamines Screen Presumptive negative 05/05/21 12:10 U Benzodiazepines Scrn Presumptive negative 05/05/21 12:10 Urine Cocaine Screen Presumptive negative 05/05/21 12:10 U Marijuana (THC) Screen Presumptive negative 05/05/21 12:10 Drugs of Abuse Note Disclamer 05/05/21 12:10 Plasma/Serum Alcohol < 0.01 % (0-0.07) 05/05/21 07:44 Blood Type O POSITIVE 05/06/21 08:48 Antibody Screen Negative 05/06/21 08:48 Crossmatch See Detail 05/06/21 08:48 Microbiology: Microbiology 05/05/21 12:10 Urine,Clean Catch Urine Culture - Preliminary NO GROWTH AFTER 24 HOURS Mishra/IV: Voiding Method Indwelling Catheter Active Medications - Current Medications Current Medications: Generic Name Dose Route Start Last Admin Trade Name Freq PRN Reason Stop Dose Admin Acetaminophen 650 mg 05/05/21 11:30 Acetaminophen 325 Mg Tab PO Q4H PRN Pain MILD(1-3)/Fever >100.5/GILLETTE Dextrose 0 ml 05/05/21 09:23 Dextrose 10% *Hypoglycemia IV PRN PRN Hypoglycemia Heparin Sodium (Porcine) 5,000 unit 05/05/21 22:00 05/06/21 21:34 Heparin 5,000 Unit/1 Ml Vial SUB-Q Not Given Q12HR RIRI Sodium Chloride 1,000 mls @ 75 mls/hr 05/06/21 08:00 05/07/21 06:29 Nacl 0.45% 1000 Ml IV 75 mls/hr DIRECT RIRI Administration Morphine Sulfate 1 mg 05/05/21 12:00 Morphine 2 Mg/1 Ml Inj IV Q4H PRN Pain , Severe (7-10) Ondansetron HCl 4 mg 05/05/21 12:00 Ondansetron 4 Mg/2 Ml Inj IV Q8H PRN Nausea And Vomiting Oxycodone/Acetaminophen 1 tab 05/05/21 12:00 05/07/21 04:44 Oxycodone /Acetaminophen 5-325mg Tab PO 1 tab Q6H PRN Administration Pain, Moderate (4-6) Potassium Chloride 40 meq 05/06/21 17:46 Potassium Chloride Er 20 Meq Tab PO 05/07/21 17:45 ONCE RIRI Sodium Chloride 10 ml 05/05/21 22:00 05/06/21 21:35 Sodium Chloride 0.9% 10 Ml Flush Syringe IV 10 ml BID RIRI Administration Sodium Chloride 10 ml 05/05/21 12:00 Sodium Chloride 0.9% 10 Ml Flush Syringe IV PRN PRN LINE FLUSH Nutrition/Malnutrition Assess - Dietary Evaluation Nutrition/Malnutrition Findings: Nutrition Notes Start: 05/06/21 14:24 Freq: Status: Active Protocol: Document 05/06/21 14:24 TOM (Rec: 05/06/21 14:51 TOM [email or web address]) Nutrition Notes 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 Current Diet Renal Diet (since L 05/05). Labs/Tests 05/06: Na 147, K 2.7, CO2 21, BUN 85, Crea 4.1, Glu 101. Pertinent Medications 05/06: Nutritionally unremarkable. Height 5 ft 6 in Weight 54.431 kg [place] Body Weight (kg) 59.09 BMI 19.3 Intake Prior to Admission Poor Weight change and time frame Pt stated having unintentionally loss between 24 and 33 lb MANAGER OF CASE. Weight Status Appropriate Subjective/Other Information RD consult for skin risk and risk for malnutrition assessments. No reports available on Pt's PO intake of meals at the time . Will assess PO intake of meals and the need for ONS at F/U. Pt shows no signs of concern for skin risk at the time, according to Physical Assessment History notes. Pt shows no signs of concern for risk of malnutrition at the time, according to Physical Assessment History notes. Percent of energy/protein needs met: Prescribed Renal Diet provides for energy/protein needs (2, 072 Kcal/77 g) during LOS. Burn Absent Trauma Absent GI Symptoms None Food Allergy No Skin Integrity/Comment Assessment WNL. #1 Nutrition Diagnosis No nutrition diagnosis at this time Comments: Will assess PO intake of meals at F/U. Is patient on ventilator? No Is Patient Ambulatory and/or Out of Bed No REE-([facility]-confined to bed) 1545.408 Calculation Used for Recommendations [facility] Additional Notes Protein: 0.8-1.2 g/Kg ABW; 43- 65 g/day. Fluids: 1 ml/Kcal, or as per MD. Nutrition Intervention Follow-Up By: 05/10/21 Additional Comments Start monitoring food tolerance, %PO intake of meals , and BM.
--- NOTE | 2021-05-07 10:10 | Electrocardiograph Report ---
[facility] Test Date: 2021-05-05 Test Time: 09:27:21 Pat Name: ENRICO WALTER Department: Room: A459 Gender: F Logistics Manager: JIMMY : 1990 Requested By: CHEIKH KHOURY Order Number: [id number] Reading MD: Manny Luevano Measurements Intervals [place] Rate: 93 P: 75 MI: 156 QRS: 69 QRSD: 85 T: 30 QT: 390 QTc: 486 Interpretive Statements Sinus rhythm [id number] No previous ECG available for comparison Electronically Signed On 05-07-2021 10:10:13 EDT by Manny Luevano
[2021-05-07] MEDS: HEPARIN 5,000 UNIT/1 ML VIAL SUB-Q SCH ×2 (10:21→21:52)
--- NOTE | 2021-05-07 14:08 | Magnetic Resonance Report ---
. MR cervical spine wo con INDICATION / CLINICAL INFORMATION: 30 years Female; weakness, neck pain Patient motion, best possible exam.. Motion artifact TECHNIQUE: Multisequence, multiplanar images of the cervical spine were obtained. COMPARISON: None available. FINDINGS: CRANIOCERVICAL JUNCTION:No significant abnormality. ALIGNMENT: Mild excessive kyphosis seen, which may be related to patient positioning. VERTEBRAE:Grossly normal marrow signal and vertebral body height for age. VISUALIZED SPINAL CORD: There is edema seen in the cord, extending from the C1 level inferiorly into the upper thoracic region. Postcontrast imaging would be of benefit to ensure there is no evidence of underlying lesion. Demyelinating disease, transverse myelitis, neoplasm etc. might be considered. INTERVERTEBRAL DISCS: Grossly normal in height and signal intensity. [id number] ANALYSIS: C2-3: Mild foraminal narrowing left from facet and uncinate hypertrophy. Findings may affect the left C3 nerve. C3-4: Small left paracentral disc protrusion. Minimal facet hypertrophy on the left. C4-5: Very small right paracentral disc protrusion. C5-6: Small, broad-based left paracentral disc protrusion. C6-7: Mild foraminal narrowing on the left from facet hypertrophy. C7-T1: Mild foraminal narrowing on the left from facet hypertrophy. PARASPINAL SOFT TISSUES: No significant abnormality. ADDITIONAL FINDINGS: None. IMPRESSION: 1. Mild degenerative changes of the cervical spine identified. No single, dominant cause for patient' s symptomatology seen. Signer Name: Umberto Silva MD, III Signed: 05/07/2021 2:03 PM Workstation Name: [id number]
--- NOTE | 2021-05-07 14:14 | Magnetic Resonance Report ---
. MR brain wo con INDICATION / CLINICAL INFORMATION: 30 years Female; confusion, weakness Patient motion, best possible exam.. TECHNIQUE: Multiplanar, multisequence MR images of the brain were obtained. COMPARISON: None available. FINDINGS: BRAIN / INTRACRANIAL CONTENTS: No acute hemorrhage, mass effect, midline shift, hydrocephalus, or acu te, large territorial infarct. No chronic infarct or atrophy. No significant white matter abnormality . Note, there is increased diffusion signal in the posterior cord at the cervicomedullary junction-find ing is felt to be artifactual. If clinically warranted, repeat, multiplanar MR diffusion imaging to i nclude this region could be performed. CRANIOCERVICAL JUNCTION: No significant abnormality. VASCULAR FLOW-VOIDS: No significant abnormality. ORBITS: No significant abnormality of visualized orbits. SINUSES / MASTOIDS: There is opacification of the right maxillary antrum. Mild to moderate mucosal th ickening seen in the mastoids. ADDITIONAL FINDINGS: Prominent soft tissue is seen in the roof the nasopharynx, presumably related to reactive adenoidal tissue. Please clinically correlate. IMPRESSION: 1. No focal mass, hemorrhage, hydrocephalus, or acute ischemia. 2. Sinus disease noted, as described above. Signer Name: Umberto Silav MD, III Signed: 05/07/2021 2:09 PM Workstation Name: [id number]
[2021-05-08 07:02] LABS: Basophils % (Auto) 0.7 % (0.0-1.8); Eosinophils # (Auto) 0.2 K/mm3 (0.0-0.4); Eosinophils % (Auto) 3.8 % (0.0-4.3); Hematocrit 24.2 % (30.3-42.9); Hemoglobin 7.8 gm/dl (10.1-14.3); Lymphocytes # (Auto) 1.7 K/mm3 (1.2-5.4); Lymphocytes % (Auto) 26.3 % (13.4-35.0); Mean Corpuscular HGB Conc 32 % (30-34); Mean Corpuscular Volume 109 fl (79-97); Monocytes # (Auto) 0.4 K/mm3 (0.0-0.8); Monocytes % (Auto) 7.1 % (0.0-7.3); Platelet Count 457 K/mm3 (140-440); Red Blood Count 2.23 M/mm3 (3.65-5.03)
[2021-05-08 07:05] LABS: Red Cell Distribution Width 24.9 % (13.2-15.2)
[2021-05-08 07:19] LABS: BUN/Creatinine Ratio 19; Blood Urea Nitrogen 19 mg/dL (7-17); Calcium 8.4 mg/dL (8.4-10.2); Hemolysis Index 2
[2021-05-08] MEDS: oxyCODONE /ACETAMINOPHEN 5-325MG TAB PO PRN ×2 (07:52→15:24)
[2021-05-08] MEDS: POTASSIUM CHLORIDE ER 20 MEQ TAB PO SCH ×2 (09:57→11:25)
[2021-05-08] MEDS: HEPARIN 5,000 UNIT/1 ML VIAL SUB-Q SCH (09:57)
--- NOTE | 2021-05-08 10:58 | Discharge Summary ---
Providers - Providers Date of Admission: 05/05/21 10:59 Date of discharge: 05/08/21 Attending physician: MIKAYLA NUNEZ 05/05/21 09:44 Consult to Physician [CONS] Stat Comment: Consulting Provider: VALERIE NAIR Physician Instructions: Reason For Exam: ARF 05/05/21 12:16 Consult to Physician [CONS] Routine Comment: Consulting Provider: RYAN LUNA Physician Instructions: Reason For Exam: paraplegia, LE weakness Primary care physician: PARKING ENFORCER Hospitalization Reason for admission: MAT Condition: Critical Hospital course: This is a 30-year-old female who presented to the emergency department with complaints of bilateral lower extremity swelling, vague abdominal and back pain and generalized weakness. Patient also reportedly has had poor urine output. Patient was accompanied by her mother who is at the bedside. She reportedly had been incontinent for 5 months. Patient has had multiple ER visits at various hospitals including a previous ER visit here with similar complaints back in February with CT scan of the abdomen and pelvis that was found to be negative. Patient is also had ER visits at [facility] and [facility] with similar complaints. No reports of any hospitalization her last creatinine reported here on her ER visit in February was 0.4. The patient was admitted with diagnosis of acute kidney injury secondary to vasomotor nephropathy, severe hyperkalemia, hyponatremia, generalized weakness and debility and functional paraplegia Hospital course: 05/05/2021. Hyperkalemia protocol has been initiated in the emergency department. The patient received insulin/glucose, calcium gluconate and Kayexalate. Nephrology has been consulted and I discussed the case with Dr. Nair. Patient may need to undergo emergent hemodialysis. Bilateral renal ultrasound ordered to rule out obstructive etiology. Follow-up electrolytes. Follow-up serologies for glomerulonephritis work-upcomplements C3-C4, J LUIS, etc. 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 We will consult Neurology and obtain a MRI of lumbar spine 05/06/2021. Nephrology feels acute kidney injury is secondary to bladder obstruction and volume depletion. Continue IV fluid hydration and monitor renal function closely. Renal prognosis remains guarded. Avoid nephrotoxic agents. Creatinine has much improved 10.3--->8.0--->4.1. Potassium has also improved and patient is now hypokalemic. Replete potassium. MRI of lumbar spine was negative. Await neurology recommendations. Patient with significant anemia. Check Hemoccult of stools and iron studies. We will transfuse 2 units PRBCs 05/07/2021. Neurology reports weakness in the LE and UE ( in the differential diagnosis includes LMN - CIDP / UMN - Demyelinating Disease ). F/U MRI brain, cervical and thoracic spine. Neurology reports lumbar puncture for proteins, glucose and VDRL. Acute kidney injury secondary to bladder obstruction and volume depletion continue IV fluid hydration. Creatinine has much improved 10.3--->8.0--->4.1--->2.0--->1.6. Replete potassium. Patient is s/p 2 units PRBCs. Follow-up H&H 05/08/2021. The patient's creatinine has normalized to 1.0. MRI of the brain and cervical spine was found to be negative. The patient will have further follow-up with neurology as an outpatient for nerve conduction studies. The patient's functional paraplegia was discussed in detail and I urged the patient to follow-up with neurology as an outpatient for further evaluation. The patient's mobility issues have been chronic lasting for several months. Primary admitting diagnosis of the acute kidney injury has resolved and patient is to follow-up with nephrology as an outpatient as well. Dedicated discharge time 32 minutes Disposition: 01 HOME / SELF CARE / HOMELESS Final Discharge Diagnosis (Prints w/discharge instructions): acute kidney injury secondary to vasomotor nephropathy, severe hyperkalemia, hyponatremia, generalized weakness and debility and functional paraplegia Core Measure Documentation - Palliative Care Palliative Care/ Comfort Measures: Not Applicable - Core Measures Any of the following diagnoses?: none Exam - Constitutional Vitals: Temp Pulse Resp BP Pulse Ox 98.3 F 86 16 136/91 98 05/08/21 07:59 05/08/21 10:31 05/08/21 07:59 05/08/21 07:59 05/08/21 10:00 General appearance: Present: no acute distress, well-nourished - EENT Eyes: Present: PERRL ENT: hearing intact, clear oral mucosa - Neck Neck: Present: supple, normal ROM - Respiratory Respiratory effort: normal Respiratory: bilateral: CTA - Cardiovascular Heart Sounds: Present: S1 & S2. Absent: rub, click - Extremities Extremities: pulses symmetrical, No edema Peripheral Pulses: within normal limits - Abdominal General gastrointestinal: Present: soft, non-tender, non-distended, normal bowel sounds Female genitourinary: Present: normal - Integumentary Integumentary: Present: clear, warm, dry - Musculoskeletal Musculoskeletal: gait normal, strength equal bilaterally - Psychiatric Psychiatric: appropriate mood/affect, intact judgment & insight - Neurologic Neurologic: CNII-XII intact, moves all extremities Plan Activity: advance as tolerated Weight Bearing Status: Weight Bear as Tolerated Diet: regular Follow up with: PRIMARY CARE, [Primary Care Provider] - 3-5 Days VALERIE NAIR MD [Staff Physician] - 7 Days ROMELIA EVANS MD [Staff Physician] - 7 Days
--- NOTE | 2021-05-08 11:03 | Progress Note ---
Assessment and Plan 1. Acute kidney injury: MAT in the setting of bladder obstruction and volume depletion. Renal US finding noted. Encouraged PO fluids. Monitor renal function. Creatinine level is better. Avoid nephrotoxic agents. Meds dosage based on GFR. 2. FEN: Hypokalemia, replete K, monitor. Anion-gap Metabolic acidosis, 2/2 MAT, monitor. Hyponatremia, improved, monitor. Monitor lytes and volume status. 3. LE weakness: ?Functional paraplegia. MRI Brain, C-spine and lumbar spine negative. Seen by Neuro. Monitor. 4. Bladder retention: S/p sotelo catheter. 5. Macrocytic anemia, POA: S/p PRBC. Monitor. 6. Anorexia. Subjective: Patient was seen and examined at the bedside. Cousin at the bedside. Examination: General appearance: well-developed, appears stated age, no distress HEENT: atraumatic, MARY Neck: trachea midline Respiratory: ctab Heart: S1S2, regular, no murmur Abdomen: soft, bowel sounds heard, NT Integumentary: no obvious rash Neurologic: AO, able to move UE, not able to move LEs Ext: no edema : Sotelo catheter Subjective Date of service: 05/08/21 Objective - Vital Signs Vital signs: Vital Signs - 12hr 05/08/21 05/08/21 05/08/21 04:38 07:59 10:00 Temperature 98.7 F 98.3 F Pulse Rate 90 88 Respiratory 18 16 Rate Blood Pressure 136/91 Blood Pressure 130/89 [Left] O2 Sat by Pulse 98 100 98 Oximetry 05/08/21 10:31 Temperature Pulse Rate 86 Respiratory Rate Blood Pressure Blood Pressure [Left] O2 Sat by Pulse Oximetry - Lab 05/08/21 06:34 05/08/21 06:34 Most recent lab results Calcium 8.4 mg/dL (8.4-10.2) 05/08/21 06:34 Phosphorus 3.30 mg/dL (2.5-4.5) 05/07/21 06:35 Magnesium 2.00 mg/dL (1.7-2.3) 05/07/21 06:35 Urine Creatinine 70.6 mg/dL (0.1-20.0) H 05/05/21 12:10 Urine Sodium 18 mmol/L 05/05/21 12:10 Urine Total Protein 16 mg/dL (5-11.8) H 05/05/21 12:10 Medications & Allergies - Medications Allergies/Adverse Reactions: Allergies No Known Allergies Allergy (Verified 05/05/21 06:57) Home Medications: Home Medications Medication Instructions Recorded Confirmed Last Taken Type Famotidine [Pepcid] 20 mg PO BID #60 tablet 12/04/20 05/05/21 Unknown Rx Pantoprazole [Protonix TAB] 40 mg PO QDAY #30 tablet 12/04/20 05/05/21 Unknown Rx predniSONE [Deltasone] 20 mg PO BID 3 Days #6 tab 03/16/21 05/05/21 Unknown Rx Active Medications: Generic Name Dose Route Start Last Admin Trade Name Freq PRN Reason Stop Dose Admin Acetaminophen 650 mg 05/05/21 11:30 Acetaminophen 325 Mg Tab PO Q4H PRN Pain MILD(1-3)/Fever >100.5/GILLETTE Dextrose 0 ml 05/05/21 09:23 Dextrose 10% *Hypoglycemia IV PRN PRN Hypoglycemia Heparin Sodium (Porcine) 5,000 unit 05/05/21 22:00 05/08/21 09:57 Heparin 5,000 Unit/1 Ml Vial SUB-Q 5,000 unit Q12HR RIRI Administration Sodium Chloride 1,000 mls @ 75 mls/hr 05/06/21 08:00 05/07/21 21:53 Nacl 0.45% 1000 Ml IV 75 mls/hr DIRECT RIRI Administration Morphine Sulfate 1 mg 05/05/21 12:00 Morphine 2 Mg/1 Ml Inj IV Q4H PRN Pain , Severe (7-10) Ondansetron HCl 4 mg 05/05/21 12:00 Ondansetron 4 Mg/2 Ml Inj IV Q8H PRN Nausea And Vomiting Oxycodone/Acetaminophen 1 tab 05/05/21 12:00 05/08/21 07:52 Oxycodone /Acetaminophen 5-325mg Tab PO 1 tab Q6H PRN Administration Pain, Moderate (4-6) Potassium Chloride 40 meq 05/08/21 09:20 05/08/21 09:57 Potassium Chloride Er 20 Meq Tab PO 05/08/21 12:01 40 meq Q6HR RIRI Administration Sodium Chloride 10 ml 05/05/21 22:00 05/08/21 09:57 Sodium Chloride 0.9% 10 Ml Flush Syringe IV 10 ml BID RIRI Administration Sodium Chloride 10 ml 05/05/21 12:00 Sodium Chloride 0.9% 10 Ml Flush Syringe IV PRN PRN LINE FLUSH
--- NOTE | 2021-05-08 16:04 | XRay Report ---
Pelvis single view INDICATION: Pelvic pain following fall IMPRESSION: No fracture identified Signer Name: Abdoul Hansen MD Signed: 05/08/2021 4:00 PM Workstation Name: [id number]
--- NOTE | 2021-05-08 16:05 | XRay Report ---
Knee bilateral 4 views INDICATION: Bilateral knee pain IMPRESSION: No fracture or subluxation is identified. Small bilateral knee effusions are present. Signer Name: Abdoul Hansen MD Signed: 05/08/2021 4:00 PM Workstation Name: [id number]
[2021-05-08 20:22] VITALS: BP 123/82
== END 2021-05-08 20:40 | disposition home or self-care (01) | DRG 683 ==
LOC: ED 06:53 → 4A 10:59
PROVIDERS: ADMIT Hospitalist; ATTEND Hospitalist
PROC: 30233N1 Transfusion of Nonautologous Red Blood Cells into Peripheral Vein, Percutaneous Approach (ICD-10-PCS; principal; 2021-05-06)
DX: N17.0 Acute kidney failure with tubular necrosis (principal); E87.2 Acidosis; E87.1 Hypo-osmolality and hyponatremia; Z68.1 Body mass index [BMI] 19.9 or less, adult; G82.20 Paraplegia, unspecified; F17.200 Nicotine dependence, unspecified, uncomplicated; E87.5 Hyperkalemia; D64.9 Anemia, unspecified; R63.0 Anorexia
CPT/HCPCS: 36415; 70551; 71045; 72141; 72148; 72170; 76770; 80048; 80053; 80061; 80307; 80320; 81001; 81025; 82140; 82550; 82570; 83735; 84100; 84156; 84300; 84443; 84484; 85007; 85014; 85018; 85025; 85610; 86850; 86900; 86901; 86920; 87086; 89050; 93005; 94644; 94760; G0378; J3490; Q0162; Q9967; G0480; J0610; J1644; J1815; J3480; J7030; J7070; P9016